=== PATIENT | male | born 1980 | race Caucasian/White ===

== ENCOUNTER 2017-07-24 21:54 | Emergency (ER) | payer MEDICAID, SELFPAY ==
[2017-07-24 21:57] VITALS: BP 133/81; PULSE 103; RESP 18; TEMP 36.9; O2SAT 94; BMI 38.3
--- NOTE | 2017-07-24 22:11 | EKG12_ITS ---
Test Reason : SYNCOPE Blood Pressure : / mmHG Vent. Rate : 090 BPM Atrial Rate : 090 BPM P-R Int : 168 ms QRS Dur : 082 ms QT Int : 338 ms P-R-T Axes : 030 006 016 degrees QTc Int : 413 ms Normal sinus rhythm Nonspecific ST and T wave abnormality Abnormal ECG Confirmed by MARIE BURKS, NICOLE ([id number]), editorial project manager SHAHEED FORD ([id number] on 07/26/2017 1:42:53 PM Referred By: CANDIDA Confirmed By:NICOLE SALAZAR MD
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
--- NOTE | 2017-07-24 22:14 | ED.RN ---
NO OLD EKG'S IN MUSE.
[2017-07-24] MEDS: 0.9% Normal Saline 1,000 ML 1000 ML IV (22:15)
--- NOTE | 2017-07-24 22:16 | ED.DCSUM_ITS ---
- ER Visit Summary Date of Service: 07/24/17 Chief Complaint: [] Syncope History of Present Illness: The patient is a 37 M [] reports episode of loss of consciousness after vigorously coughing. Patient reports he thought he had a seizure however in further eliciting the history it sounds like he had a syncopal episode. He reports coughing and blacking out for about 10 seconds and then being fully aware of his surroundings after he awoke. This does not sound like a postictal period. He does not have a previous history of seizures. Has a past medical history of type 2 diabetes. No other complaints at this time. Patient denies chest pain or shortness of breath either prior or post the episode. Physical Examination: [] Afebrile, vital signs stable. Morbidly obese 37-year-old male in no acute distress. Cardiovascular exam is regular rate and rhythm. Lungs are clear to auscultation. Abdomen is soft and nontender. Test Results: [] EKG: Sinus rhythm, rate of 90 without ischemic changes. No ectopy. Normal intervals. CBC normal. BMP normal with exertional a BUN mildly elevated at 24. Chest x- ray 1 view: Negative. Emergency Department Course and Treatment: [] Patient given IV fluids. His history sounds consistent with a vasovagal episode secondary to a coughing fit. He felt improved after fluids and serial examination. He was encouraged to follow-up with his primary care physician. Treatment Plan: [] Follow-up with PCP. Disposition: [] Discharge, stable. Impression: [] Syncope Dehydration This note was generated with [employer] dictation software. It may contain incorrect words, spelling, and punctuation that were not noted in review of the chart prior to signing ED Disposition - Plan for ED Patient: Chief Complaint: Seizure Referrals: Harmeet Calderon MD [Primary Care Provider] -
[2017-07-24 22:18] LABS: Absolute Lymphocyte Count 2.24 X10^3/ul (0.83-4.51); Absolute Neutrophil Count 4.1 X10^3/uL (2.0-7.7); Basophil# 0.04 X10^3/uL; Basophil% 0.6 % (0-1); Eosinophil# 0.06 X10^3/uL; Eosinophils% 0.9 % (0-5); Hemoglobin 14.5 g/dl (13.0-16.5); Lymphocyte # 2.24 X10^3/ul (4.0); Lymphocyte % 32.7 % (19-41); Mean Corp Hgb Conc 34.5 g/gl (32-36); Mean Corpuscular Hgb 29.7 pg (27.0-32.0); Mean Corpuscular Volume 85.9 fL (80-94); Mean Platelet Vol. 11.8 fl (6.2-12.0); Monocyte# 0.38 X10^3/uL; Monocyte% 5.5 % (0-10); Neutrophil # 4.08 X10^3/uL (2.7-7.7); Neutrophil % 59.4 % (47-70); Platelet Count 229 K/mm3 (150-450); RBC Distribution Width CV 13.2 % (11.6-14.6); RBC Distribution Width SD 41.1 fl (35.1-43.9); Red Blood Count 4.89 M/mm3 (4.6-6.2); White Blood Count 6.9 K/mm3 (4.4-11.0)
[2017-07-24 22:21] LABS: POSITIVE COUNT NO; POSITIVE DIFFERENTIAL NO; POSITIVE MORPHOLOGY NO
[2017-07-24 22:43] LABS: Anion Gap 8 (5-15); BUN 24 mg/dL (7-18); BUN/Creat Ratio 27.2 RATIO (10-20); Calcium,Total 8.4 mg/dL (8.5-10.1); Chloride 105 mmol/L (98-107); Creatinine, Serum 0.88 mg/dL (0.70-1.30); EST Glomerular Filtration Rate 104 mL/min (>60); Est Glom Filt Rate - Afr Amer 126 mL/min (>60); Estimated Creatinine Clearance 127.37 ml/min; Glucose 172 mg/dL (74-106); Potassium 3.8 mmol/L (3.5-5.1); Sodium Level 140 mmol/L (136-145)
--- NOTE | 2017-07-24 23:23 | ED.DEP ---
ED Disposition - Plan for ED Patient: Disposition: Home or Assisted Living Chief Complaint: Seizure Instructions: ED Syncope Vasovagal Referrals: Harmeet Calderon MD [Primary Care Provider] -
[2017-07-24 23:26] VITALS: BP 134/88; PULSE 100; RESP 16; O2SAT 96
== END 2017-07-24 23:31 | disposition home or self-care (01) ==
PROVIDERS: Emergency Provider Emergency Medicine; Family Provider Internal Medicine; PCP Internal Medicine
DX: E86.0 Dehydration (principal); R55 Syncope and collapse; E11.9 Type 2 diabetes mellitus without complications; Z79.84 Long term (current) use of oral hypoglycemic drugs; E78.00 Pure hypercholesterolemia, unspecified; E66.01 Morbid (severe) obesity due to excess calories; Z68.38 Body mass index [BMI] 38.0-38.9, adult; Z79.899 Other long term (current) drug therapy
CPT/HCPCS: 71045; 80048; 85025; 93005; 99285; A4216

== ENCOUNTER → 2017-11-24 09:25 | Outpatient (CLI) | payer MEDICAID, SELFPAY ==
--- NOTE | 2017-11-24 09:35 | RAD_ITS ---
STUDY: AIR-CONTRAST UPPER GI SERIES AND SMALL BOWEL FOLLOW-THROUGH EXAMINATION. REASON FOR EXAM: Male, 37 years old. Intractable vomiting and nausea. FLUOROSCOPY TIME (if supplied): (1:02) minutes/seconds TECHNIQUE: The patient ingested barium. Multiple images of the esophagus, stomach and duodenum were obtained. Following this, a small bowel follow-through examination was performed. COMPARISON: None. FINDINGS: The esophagus unremarkable. There is no evidence of obstruction. No mass lesion is seen. There is no evidence of gastroesophageal reflux. The stomach and duodenum are unremarkable. There is no evidence of ulceration. A small bowel follow-through examination was performed. The small bowel transit is normal. There is no evidence of intrinsic or extrinsic small bowel disease. The terminal ileum is unremarkable. RAD/Upper GI/w Small Bowel IMPRESSION: Unremarkable examination. Electronically Signed: Louie Valladares MD at 14:57 EDT Tel [phone], Service support ,
== END ==
PROVIDERS: Family Provider Internal Medicine; PCP Internal Medicine; Visit Provider Nurse Practitioner Adult Health
DX: R11.2 Nausea with vomiting, unspecified (principal); R19.4 Change in bowel habit; R19.7 Diarrhea, unspecified
CPT/HCPCS: 74249

== ENCOUNTER 2018-08-31 17:10 | Observation (INO) | payer MEDICAID, SELFPAY ==
[2018-08-31] VITALS (8 sets, daily range): BP systolic 128–161; BP diastolic 83–92; PULSE 87–103; RESP 15–21; TEMP 36.2–36.7; O2SAT 94–694; BMI 39.2; BMI 38.0
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
[2018-08-31 17:54] LABS: Absolute Lymphocyte Count 1.39 X10^3/ul (0.83-4.51); Absolute Neutrophil Count 4.2 X10^3/uL (2.0-7.7); Basophil# 0.04 X10^3/uL; Basophil% 0.7 % (0-1); Eosinophil# 0.06 X10^3/uL; Hematocrit 39.9 % (40-54); Hemoglobin 13.8 g/dl (13.0-16.5); Lymphocyte # 1.39 X10^3/ul (4.0); Lymphocyte % 22.8 % (19-41); Mean Corp Hgb Conc 34.6 g/gl (32-36); Mean Corpuscular Hgb 29.2 pg (27.0-32.0); Mean Corpuscular Volume 84.4 fL (80-94); Mean Platelet Vol. 11.3 fl (6.2-12.0); Monocyte# 0.32 X10^3/uL; Monocyte% 5.2 % (0-10); Neutrophil # 4.18 X10^3/uL (2.7-7.7); Neutrophil % 68.5 % (47-70); Platelet Count 207 K/mm3 (150-450); RBC Distribution Width CV 13.2 % (11.6-14.6); RBC Distribution Width SD 39.9 fl (35.1-43.9); Red Blood Count 4.73 M/mm3 (4.6-6.2); White Blood Count 6.1 K/mm3 (4.4-11.0)
[2018-08-31 17:57] LABS: POSITIVE COUNT NO; POSITIVE DIFFERENTIAL NO; POSITIVE MORPHOLOGY NO
[2018-08-31 18:13] LABS: Anion Gap 5 (5-15); BUN 22 mg/dL (7-18); BUN/Creat Ratio 21.8 RATIO (10-20); Calcium,Total 8.6 mg/dL (8.5-10.1); Chloride 103 mmol/L (98-107); Creatinine, Serum 1.01 mg/dL (0.70-1.30); EST Glomerular Filtration Rate 88 mL/min (>60); Est Glom Filt Rate - Afr Amer 107 mL/min (>60); Estimated Creatinine Clearance 109.91 ml/min; Glucose 208 mg/dL (74-106); Potassium 3.4 mmol/L (3.5-5.1); Sodium Level 137 mmol/L (136-145)
[2018-08-31 19:19] LABS: Amphetamine Urine VISTA NEGATIVE (<1000 ng/mL); Barbiturate Urine VISTA NEGATIVE (< 200 ng/mL); Benzodiazepine Urine VISTA NEGATIVE (< 200 ng/mL); Cocaine Urine VISTA NEGATIVE (< 300 ng/mL); Ecstacy Urine VISTA NEGATIVE (< 500 ng/mL); Methadone Urine VISTA NEGATIVE (< 300 ng/mL); PCP Urine VISTA NEGATIVE (< 25 ng/mL); THC Urine VISTA NEGATIVE (< 50 ng/mL); Vista UDS pH Range 5
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
[2018-08-31 21:55] LABS: Bedside Glucose 145 mg/dL (70-110)
[2018-08-31 21:57] LABS: Magnesium 1.9 mg/dL (1.6-2.6)
[2018-08-31] MEDS: 0.9% Normal Saline 1,000 ML 125 ML IV (22:30)
[2018-08-31] MEDS: Ipratropium Bromide 0.06% NASAL SPRAY 2 SPRAY NASAL (23:15)
[2018-08-31] MEDS: Loratadine 10 MG Tablet PO (23:16)
[2018-08-31] MEDS: Atorvastatin Calcium 10 MG Tablet PO (23:17)
[2018-09-01] VITALS (7 sets, daily range): BP systolic 142–147; BP diastolic 81–92; PULSE 77–99; RESP 16–17; TEMP 36.8–36.9; O2SAT 96–98
[2018-09-01 05:04] LABS: Absolute Lymphocyte Count 1.61 X10^3/ul (0.83-4.51); Absolute Neutrophil Count 4.1 X10^3/uL (2.0-7.7); Basophil# 0.03 X10^3/uL; Basophil% 0.5 % (0-1); Eosinophil# 0.06 X10^3/uL; Hematocrit 40.2 % (40-54); Hemoglobin 13.7 g/dl (13.0-16.5); Lymphocyte # 1.61 X10^3/ul (4.0); Lymphocyte % 25.8 % (19-41); Mean Corp Hgb Conc 34.1 g/gl (32-36); Mean Corpuscular Hgb 29.8 pg (27.0-32.0); Mean Corpuscular Volume 87.4 fL (80-94); Mean Platelet Vol. 11.1 fl (6.2-12.0); Monocyte# 0.36 X10^3/uL; Monocyte% 5.8 % (0-10); Neutrophil # 4.13 X10^3/uL (2.7-7.7); Neutrophil % 66.1 % (47-70); Platelet Count 199 K/mm3 (150-450); RBC Distribution Width CV 13.3 % (11.6-14.6); RBC Distribution Width SD 42.6 fl (35.1-43.9); White Blood Count 6.2 K/mm3 (4.4-11.0)
[2018-09-01 05:16] LABS: POSITIVE COUNT NO; POSITIVE DIFFERENTIAL NO; POSITIVE MORPHOLOGY NO
[2018-09-01 05:51] LABS: ALB/GLOB Ratio 1.2 RATIO (0.9-2.4); AST(SGOT) 34 U/L (15-37); Alanine Aminotransfer ALT/SGPT 53 U/L (16-61); Albumin, Serum 3.6 g/dL (3.2-5.0); Alkaline Phosphatase 44 U/L (45-117); Anion Gap 7 (5-15); BUN 23 mg/dL (7-18); BUN/Creat Ratio 25.6 RATIO (10-20); Calcium,Total 8.2 mg/dL (8.5-10.1); Chloride 106 mmol/L (98-107); Cholesterol 148 mg/dL (200); EST Glomerular Filtration Rate 101 mL/min (>60); Est Glom Filt Rate - Afr Amer 122 mL/min (>60); Estimated Creatinine Clearance 123.35 ml/min; Glucose 173 mg/dL (74-106); High Density Lipoprotein 19 mg/dL; Potassium 3.9 mmol/L (3.5-5.1); Protein, Total 6.6 g/dL (6.4-8.2); Sodium Level 141 mmol/L (136-145); Triglycerides 609 mg/dL
[2018-09-01] MEDS: Ipratropium Bromide 0.06% NASAL SPRAY 2 SPRAY NASAL (06:22)
[2018-09-01] MEDS: 0.9% Normal Saline 1,000 ML 125 ML IV (06:22)
[2018-09-01 07:15] LABS: Bedside Glucose 196 mg/dL (70-110)
[2018-09-01] MEDS: Insulin Lispro 100 UNIT/ML INSULN.PEN SC ×2 (07:40→11:19)
[2018-09-01] MEDS: Loratadine 10 MG Tablet PO (11:17)
[2018-09-01] MEDS: Venlafaxine XR 150 MG Capsule PO (11:17)
[2018-09-01] MEDS: ARIPiprazole 5 MG Tablet PO (11:17)
[2018-09-01] MEDS: Aspirin 81 MG TAB.CHEW PO (11:17)
[2018-09-01] MEDS: Lisinopril 5 MG Tablet PO (11:18)
[2018-09-01 11:21] LABS: Bedside Glucose 196 mg/dL (70-110)
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
== END 2018-09-01 11:59 | disposition home or self-care (01) ==
LOC: ED 17:44 → PCU 21:18
PROVIDERS: Admitting Provider Family Medicine; Emergency Provider Emergency Medicine; Family Provider Internal Medicine; PCP Internal Medicine; Visit Provider Internal Medicine
DX: R55 Syncope and collapse (principal); E87.6 Hypokalemia; E78.5 Hyperlipidemia, unspecified; I10 Essential (primary) hypertension; E11.9 Type 2 diabetes mellitus without complications; E66.9 Obesity, unspecified; Z68.38 Body mass index [BMI] 38.0-38.9, adult; Z71.3 Dietary counseling and surveillance; F84.5 Asperger's syndrome; F41.9 Anxiety disorder, unspecified; F32.9 Major depressive disorder, single episode, unspecified; Z79.899 Other long term (current) drug therapy; Z79.84 Long term (current) use of oral hypoglycemic drugs
CPT/HCPCS: 36415; 70450; 71275; 72125; 80048; 80053; 80061; 80307; 80320; 82962; 83735; 84484; 85025; 93005; 93306; 96360; 96361; 97802; 99218; 99285; J7030; J7040; Q9957; Q9967; A4216; C8929; G0378; G0480

== ENCOUNTER 2020-11-10 20:23 | Emergency (ER) | payer SELFPAY ==
[2018-08-31 21:38] VITALS: BMI 38.0
[2020-11-10 20:24] VITALS: BP 144/88; PULSE 77; RESP 18; TEMP 36.5; O2SAT 97; BMI 34.8
--- NOTE | 2020-11-10 21:10 | EX.ED.UPPERE ---
HPI History of Present Illness Chief Complaint: Laceration Informant: patient Narrative Narrative: Patient was slicing food on a mandolin slicer. He accidentally got injury to his right dominant hand and thumb index finger and long finger. Tetanus is up-to-date as of 2 years ago. No numbness tingling weakness or loss of function. Bleeding is controlled. No anticoagulants other than meloxicam. Dressings made it better. Nothing makes it worse. Denies any other injury. [facility] Medical History (Updated 11/10/20 @ 23:[address] Uriel Monreal MD) Anxiety Depression Diabetes Home Medications glipizide 5 mg PO DAILY 08/31/18 [History Last Taken 08/31/18] metformin 500 mg PO BIDCM 08/31/18 [History Last Taken 08/31/18] venlafaxine 225 mg PO DAILY 08/31/18 [History Last Taken 08/31/18] bupropion HCl 300 mg PO DAILY 11/10/20 [History Last Taken Unknown] fenofibrate nanocrystallized 145 mg PO DAILY 11/10/20 [History Last Taken Unknown] meloxicam 15 mg PO DAILY 11/10/20 [History Last Taken Unknown] pioglitazone 15 mg PO DAILY 11/10/20 [History Last Taken Unknown] Allergy/AdvReac Type Severity Reaction Status Date / Time amoxicillin Allergy Hives Verified 08/31/18 17:17 Social History Smoking Status: Never smoker ROS ROS ED Constitutional Constitutional ED: Denies chills or sweats Gastrointestinal Gastrointestinal: Denies nausea or vomiting Integumentary Reports other Details: Lacerations on right thumb index and middle finger as above. ; Denies rash Neurologic Neurologic: Denies paresthesias or weakness Hematologic/Lymphatic Hematologic/Lymphatic: Denies easy bleeding or easy bruising EXAM Physical Exam Const Vital Signs: 11/10/20 20:24 Temperature 97.7 F L Temperature Source Temporal Pulse Rate 77 Respiratory Rate 18 Blood Pressure 144/88 H Blood Pressure Mean 106 Pulse Ox 97 Oxygen Delivery Method Room Air Positive well nourished and well developed General Appearance ED: well developed and NAD; Negative for cyanotic or diaphoretic HEENT normocephalic Neck full ROM and supple Resp normal respiratory effort GI non-tender Palpation: soft Extremity full ROM Extremity Narrative: Patient has excellent range of motion including flexors and extensors of right hand including all fingers. He has an avulsion of approximately 1cm? area of tissue from the dorsal middle finger overlying the distal interphalangeal joint. No exposed tendon. He has an avulsion of a small amount of tissue off the medial dorsal portion of the right index finger near the nail. Patient also has a flap type laceration to the volar surface of the right thumb more laterally. No active bleeding. Distal sensation is intact. This area will be cleansed and scrubbed more to define the limits of this laceration. Neuro no focal motor deficits and no sensory deficits noted Sensorium / Orientation: alert Psych mental status grossly normal Skin Skin Narrative: as above Trauma: laceration MDM MDM MDM Narrative Medical decision making narrative: We rechecked his hand after cleansing. He has a flap laceration of the volar lateral aspect of his right thumb. The circumference of this total is about 3 cm. It is thin on the edges. However, I think it would benefit from a few sutures being placed to hold this flap in place better. I will try to minimize the number to avoid a large number of additional holes/trauma to that flap. I discussed risk benefits and options with the patient. I have done a digital block on her thumb. I used a total of 2 cc of 1% lidocaine without epinephrine. We are letting that rest. We will come back and touchup areas that need anesthesia and complete the procedure. Patient had overall good but not complete anesthesia of the thumb. I did use about half cc of lidocaine without epinephrine distally to provide greater anesthesia. The area was scrubbed and cleaned. It was irrigated under the flap. The flap was sutured back with 3 interrupted 4-0 Ethilon sutures. There is some oozing from the wound but no active bleeding. I did not put many stitches in because this flap is already a little bit dusky and I would like to avoid further trauma. We discussed reasons to return. He should have the sutures out in about 10 days. We discussed care of the wound. Discharge Plan Triage Chief Complaint: Laceration ED Provider: Uriel Monreal Dx/Rx/DC Orders Clinical Impression: Laceration of right hand, Suture of skin wound Instructions: ED Laceration, Hand: All Closures Prescriptions: No Action metformin 500 MG tablet 500 mg PO BIDCM RF: 0 venlafaxine 150 MG capsule 225 mg PO DAILY RF: 0 glipizide 5 MG tablet 5 mg PO DAILY RF: 0 meloxicam 15 mg tablet 15 mg PO DAILY RF: 0 pioglitazone 15 mg tablet 15 mg PO DAILY RF: 0 bupropion HCl 300 mg tablet extended release 24 hr 300 mg PO DAILY RF: 0 fenofibrate nanocrystallized 145 mg tablet 145 mg PO DAILY RF: 0 Primary Care Provider: Harmeet Calderon Referrals: Harmeet Calderon MD [Primary Care Provider] - 10 Day for suture removal Disposition Disposition: Home, Self Care
[2020-11-11] MEDS: Lidocaine 1% (20 ml mdv) 20 ML Vial INFILT (00:22)
[2020-11-11] MEDS: BACITRACIN 15 GM Tube 1 APPLIC TOPICAL (00:22)
== END 2020-11-11 00:24 | disposition home or self-care (01) ==
PROVIDERS: Emergency Provider Emergency Medicine; PCP Internal Medicine
DX: S61.411A Laceration without foreign body of right hand, initial encounter (principal); E11.9 Type 2 diabetes mellitus without complications; F32.9 Major depressive disorder, single episode, unspecified; Z79.84 Long term (current) use of oral hypoglycemic drugs; Z79.899 Other long term (current) drug therapy; W27.4XXA Contact with kitchen utensil, initial encounter
CPT/HCPCS: 12002; 99284

== ENCOUNTER 2022-01-08 12:55 | Inpatient (IN) | payer MEDICAID, SELFPAY ==
[2022-01-08 12:56] VITALS: BP 141/102; PULSE 105; RESP 18; TEMP 36; O2SAT 98; BMI 36.6
--- NOTE | 2022-01-08 13:07 | EX.ED.DYSGE1 ---
HPI History of Present Illness Chief Complaint: Flank Pain Informant: patient Onset/Context/Timing Onset: Weeks (3) Context: - (Cannot remember onset) Timing: Continuous and Waxes and wanes Quality: Ache Location: Right low back Current Severity: Mild Maximum Severity: Moderate Worsened by: Nothing in particular, not worse with specific movements Relieved by: Nothing in particular Associated Symptoms Associated Symptoms: Hematuria off and on for the past 2 days Narrative Narrative: Patient has had pain in his right low back, no abdominal or testicular/scrotal pain, it has been there for about 3 weeks. He states he saw [facility] urgent care and they did an outpatient ultrasound which he states was unremarkable. He started urinating blood couple days ago, it has been intermittent. He denies any urinary retention. He takes no anticoagulants or antiplatelet medications. Denies any fevers, chills, nausea, vomiting. [facility] Medical History (Updated 01/08/22 @ 17:[address] Martin Wang MD) Anxiety Asperger's disorder Depression Diabetes mellitus, type II HLD (hyperlipidemia) HTN (hypertension) Home Medications venlafaxine 150 mg capsule,extended release 24 hr 225 mg PO DAILY depression 08/31/18 [History Last Taken 08/31/18] bupropion HCl 300 mg 24 hr tablet, extended release 300 mg PO DAILY 11/10/20 [History Last Taken Unknown] fenofibrate nanocrystallized 145 mg tablet 145 mg PO DAILY 11/10/20 [History Last Taken Unknown] pioglitazone 15 mg tablet 15 mg PO DAILY dm 11/10/20 [History Last Taken Unknown] acetaminophen 500 mg tablet 1,000 mg PO Q6H PRN Pain 01/08/22 [History Last Taken 01/08/22] atorvastatin 40 mg tablet mg 01/08/22 [History Last Taken Unknown] brexpiprazole 3 mg tablet (Rexulti) 3 mg PO DAILY 01/08/22 [History Last Taken 01/08/22] dulaglutide 1.5 mg/0.5 mL subcutaneous pen injector (Trulicity) 1.5 mg subcut TU 01/08/22 [History Last Taken 01/06/22] lisinopril 5 mg tablet 5 mg PO DAILY 01/08/22 [History Last Taken 01/08/22] metformin 500 mg tablet,extended release 24 hr 2,000 mg PO DAILY 01/08/22 [History Last Taken 01/08/22] Allergy/AdvReac Type Severity Reaction Status Date / Time amoxicillin Allergy Hives Verified 01/08/22 12:56 Social History Smoking Status: Never smoker ROS ROS ED Constitutional Constitutional ED: Denies chills or fever(s) Eyes Eyes: Denies change in vision or diplopia ENT ENT ED: Denies rhinorrhea or sore throat Cardiovascular Cardiovascular: Denies chest pain or palpitations Respiratory/Chest Respiratory/Chest: Denies cough or dyspnea Gastrointestinal Gastrointestinal: Denies abdominal pain, diarrhea, nausea or vomiting Genitourinary Genitourinary ED: Reports hematuria; Denies dysuria or urinary frequency Musculoskeletal Musculoskeletal: Reports back pain; Denies neck pain Integumentary Denies abscess or rash Neurologic Neurologic: Denies headache(s), paresthesias or weakness Psychiatric Psychiatric: Denies anxiety or suicidal thoughts EXAM Physical Exam Const Vital Signs: 01/08/22 12:56 01/08/22 13:16 01/08/22 15:44 Temperature 96.8 F L Temperature Source Temporal Pulse Rate 105 H 81 Respiratory Rate 18 18 Respiratory Pattern Normal Blood Pressure 141/102 H 149/100 H Blood Pressure Mean 115 116 Pulse Ox 98 97 Oxygen Delivery Method Room Air Room Air 01/08/22 17:28 Temperature Temperature Source Pulse Rate 83 Respiratory Rate 18 Respiratory Pattern Blood Pressure 148/98 H Blood Pressure Mean 114 Pulse Ox 97 Oxygen Delivery Method Room Air Positive well nourished and well developed General Appearance ED: well developed and NAD HEENT Reports moist mucous membranes normocephalic and atraumatic Eyes PERRL and EOMs intact bilaterally Neck full ROM and supple Resp normal respiratory effort and clear to auscultation bilaterally Cardio regular rate, regular rhythm and no murmurs GI non-tender and non-distended Auscultation: normoactive bowel sounds Palpation: soft Back/Spine no CVA tenderness General Back: other FROM Extremity normal to inspection General Extremety ED: Negative for edema, pulses abnormal or tenderness General Extremity: Negative for edema or pulses abnormal Neuro oriented x3, CN's II-XII intact bilaterally and no sensory deficits noted Sensorium / Orientation: awake and alert Motor Exam: strength 5/5 throughout Skin no rashes or lesions noted and no wounds MDM MDM MDM Narrative Medical decision making narrative: Patient's labs show acute renal failure with a creatinine almost 5, and a 10:1 ratio of [id number]. Imaging of the abdomen/pelvis with CT with no contrast shows concern for possible dilatation of left renal and gonadal veins, more proximally in the gonadal vein than distally which is suspicious for possible thrombus. No other obvious renal problem except for some mild perinephric stranding bilaterally. This is obviously limited without IV contrast, however given his creatinine I do not think that is in his best interest so after discussing with urology Dr. Shaver, we obtained an ultrasound of his kidneys here. It is normal, but did not evaluate the veins, and the IVC was observed by bowel gas and not visible. Clinically the patient is doing fine. I discussed with Dr. Parr with vascular, he agrees with admission here, advises making the patient n.p.o. after midnight and obtaining a renal duplex Doppler ultrasound in the morning, and he will see the patient in consultation. Lab Data Attestation: I reviewed the patient's lab results. Labs: Laboratory Results - last 24 hr 01/08/22 01/08/22 01/08/22 13:10 13:10 13:10 WBC 6.5 RBC 3.77 L Hgb 10.5 L Hct 33.0 L MCV 87.5 MCH 27.9 MCHC 31.8 L RDW Std Deviation 43.3 RDW Coeff of Jennie 13.5 Plt Count 318 MPV 11.7 Immature Gran % (Auto) 0.500 Neut % (Auto) 81.0 H Lymph % (Auto) 10.0 L [place] % (Auto) 7.1 Eos % (Auto) 0.5 Baso % (Auto) 0.9 Absolute Neuts (auto) 5.3 Absolute Lymphs (auto) 0.65 L Nucleated RBC % 0 Sodium 138 Potassium 3.8 Chloride 104 Carbon Dioxide 25.0 Anion Gap 9 BUN 42 H Creatinine 4.96 H Estim Creat Clear Calc 21.73 Est GFR (MDRD) Af Amer 17 L Est GFR (MDRD) Non-Af 14 L BUN/Creatinine Ratio 8.5 L Glucose 136 H Calcium 9.4 Urine Color Liz Urine Clarity Cloudy Urine pH 6.0 Ur Specific [place] 1.015 Urine Protein 100 H Urine Glucose (UA) Normal Urine Ketones Negative Urine Occult Blood 250 H Urine Nitrite Negative Urine Bilirubin Negative Urine Urobilinogen Normal Ur Leukocyte Esterase 25 H Urine RBC 25-50 SEEN Urine WBC 0-5 SEEN Ur Squamous Epith Cells 0 SEEN Urine Bacteria 1+ Urine Mucus 0 SEEN Radiography Diagnostic Testing: Clinical Impression(s) from Imaging Studies Abdomen/Pelvis CT 01/08/22 13:25 IMPRESSION: Bilateral perinephric stranding worse on the left side with enlargement of the left kidney. Findings suggestive of a distended left renal vein and proximal portion of the left gonadal vein suggestive of possible left renal vein thrombosis. A repeat examination following IV contrast is recommended if the patient''s renal profile is acceptable. Bladder wall thickening. Electronically Signed: Louie Valladares MD at 14:00 EDT , Renal Ultrasound 01/08/22 14:56 IMPRESSION: There are no acute findings. Electronically Signed: Chucky Ahn MD at 16:59 EDT , Discharge Plan Dx/Rx/DC Orders Clinical Impression: Acute renal failure, Hematuria Disposition Disposition: [facility]
[2022-01-08 13:17] LABS: Mucous, Urine 0 SEEN /hpf (<or=2+); Squamous Epithelial Cells - UA 0 SEEN /hpf (0-5)
[2022-01-08 13:24] LABS: Absolute Lymphocyte Count 0.65 X10^3/uL (0.83-4.51); Absolute Neutrophil Count 5.3 X10^3/uL (2.0-7.7); Basophil# 0.06 X10^3/uL; Basophil% 0.9 % (0-1); Eosinophil# 0.03 X10^3/uL; Eosinophils% 0.5 % (0-5); Hemoglobin 10.5 g/dL (13.0-16.5); Lymphocyte # 0.65 X10^3/ul (0.83-4.51); Mean Corp Hgb Conc 31.8 g/dL (32-36); Mean Corpuscular Hgb 27.9 pg (27.0-32.0); Mean Corpuscular Volume 87.5 fL (80-94); Mean Platelet Vol. 11.7 fl (6.2-12.0); Monocyte# 0.46 X10^3/uL; Monocyte% 7.1 % (0-10); NRBC Flagged by Analyzer 0 % (0-5); Neutrophil # 5.27 X10^3/uL (2.7-7.7); Platelet Count 318 K/mm3 (150-450); RBC Distribution Width CV 13.5 % (11.6-14.6); RBC Distribution Width SD 43.3 fl (35.1-43.9); Red Blood Count 3.77 M/mm3 (4.6-6.2); White Blood Count 6.5 K/mm3 (4.4-11.0)
--- NOTE | 2022-01-08 13:25 | CT_ITS ---
STUDY: CT ABDOMEN AND PELVIS WITHOUT CONTRAST REASON FOR EXAM: Male, 41 years old. R flank pain, hematuria RADIATION DOSAGE (If Supplied By Facility): CTDIvol = ( 20.43 ) mGy, DLP = ( 1122.75 ) mGycm TECHNIQUE: Transaxial images were obtained from the dome of the diaphragm to the symphysis pubis without oral contrast, and without intravenous contrast. Sagittal and coronal images were reconstructed. Individualized dose optimization techniques were used for this CT. COMPARISON: None. FINDINGS: The visualized lung bases are unremarkable. The visualized portions of the heart are within normal limits. Normal liver. Normal gallbladder and extrahepatic biliary system. Normal spleen. Normal pancreas. Normal bilateral adrenal glands. Mild degree of right perinephric stranding. There is engorgement of the left kidney with the left perinephric stranding. There is enlargement of the left renal vein. There is dilatation of the distal portion of the left gonadal vein. Left renal venous thrombosis should be ruled out. There is a small hiatal hernia. Normal small intestine. Normal colon. The appendix is visualized and appears normal. Normal abdominal aorta. Normal inferior vena cava. There is borderline retroperitoneal lymphadenopathy with enlarged nodes no greater than 10mm in the short axis diameter. Mild degree of diffuse bilateral wall thickening. There is a small umbilical hernia containing fat. There are mild degenerative changes of the visualized lumbar spine. CT/Abdomen/Pelvis without Cont IMPRESSION: Bilateral perinephric stranding worse on the left side with enlargement of the left kidney. Findings suggestive of a distended left renal vein and proximal portion of the left gonadal vein suggestive of possible left renal vein thrombosis. A repeat examination following IV contrast is recommended if the patient''s renal profile is acceptable. Bladder wall thickening. Electronically Signed: Louie Valladares MD at 14:00 EDT ,
[2022-01-08 13:33] LABS: Anion Gap 9 (5-15); BUN 42 mg/dL (7-18); BUN/Creat Ratio 8.5 RATIO (10-20); Calcium,Total 9.4 mg/dL (8.5-10.1); Chloride 104 mmol/L (98-107); Creatinine, Serum 4.96 mg/dL (0.70-1.30); EST Glomerular Filtration Rate 14 mL/min (>60); Est Glom Filt Rate - Afr Amer 17 mL/min (>60); Estimated Creatinine Clearance 21.73 ml/min; Glucose 136 mg/dL (74-106); Potassium 3.8 mmol/L (3.5-5.1); Sodium Level 138 mmol/L (136-145)
[2022-01-08 13:36] LABS: Color, Urine Amber (Yellow); Glucose, Dipstick Normal (Normal); Ketone-Dipstick Negative (Negative); Leukocyte Esterase-Dipstick 25 /ul (Negative); Nitrite-Dipstick Negative (Negative); Occult Blood-Urine 250 /ul (Negative); Protein-Dipstick 100 mg/dl (Negative); Specific Gravity, Urine 1.015 (1.002-1.030); Urine Bilirubin Dipstick Negative (Negative); Urine Clarity Cloudy (Clear); Urine Urobilinogen Normal (Normal)
[2022-01-08 13:49] LABS: Bacteria 1+ /hpf (None Seen); Red Blood Cells-Urine 25-50 SEEN /hpf (0-5); White Blood Cells 0-5 SEEN /hpf (0-5)
--- NOTE | 2022-01-08 14:56 | US_ITS ---
STUDY: RENAL ULTRASOUND - COMPLETE REASON FOR EXAM: Male, 41 years old. acute renal failure TECHNIQUE: Ultrasound evaluation of the kidneys was performed with real-time and static pearl-scale imaging. COMPARISON: None. FINDINGS: RIGHT KIDNEY: Normal location of the right kidney, which is normal in size. The right kidney measures 15.2 cm. There is a normal cortex of the right kidney. The renal cortex measures 2.1 cm. There is no right renal mass or cyst. There are no right renal calculi. There is no right hydronephrosis. DISTAL RIGHT URETER: There is non-visualization of the distal right ureter. There is no demonstrated right ureterovesical junction calculus. There is a visualized right ureteral jet. LEFT KIDNEY: with moderate renal hypertrophy. The left kidney measures 17.8 cm. There is a normal cortex of the left kidney. The renal cortex measures 3.4 cm. There is no left renal mass or cyst. There are no left renal calculi. There is no left hydronephrosis. DISTAL LEFT URETER: There is non-visualization of the distal left ureter. There is no demonstrated left ureterovesical junction calculus. There is a visualized left ureteral jet. AORTA: There is obscuration of the abdominal aorta by overlying bowel gas I.V.C.: The IVC is obscured. BLADDER: The distended urinary bladder has a volume of 170 ml. There is a normal wall thickness of the distended urinary bladder. There is no demonstrated mass within the urinary bladder. There are no demonstrated bladder calculi. US/Kidney and Bladder IMPRESSION: There are no acute findings. Electronically Signed: Chucky Ahn MD at 16:59 EDT ,
[2022-01-08 15:44] VITALS: BP 149/100; PULSE 81; RESP 18; O2SAT 97
[2022-01-08 17:28] VITALS: BP 148/98; PULSE 83; RESP 18; O2SAT 97
[2022-01-08 18:17] VITALS: BP 149/101; PULSE 87; RESP 18; TEMP 36.5; O2SAT 97
--- NOTE | 2022-01-08 18:23 | PCM.HP.STD ---
HPI - General General Date of Admission: 01/08/22 Date of Service: 01/08/22 Chief Complaint: Right flank pain, hematuria HPI Narrative KRISH MARQUIS, is a 41 M who presents to the emergency room at [facility] for evaluation of right pain that has been present for about 3 weeks, he was seen at [facility] urgent care on Wednesday and an ultrasound was performed but they could not find any pathology according to his mother-patient has a history of Asperger's disorder and some of his medical history was obtained from his mother. Patient noted a couple of days ago that he had blood in his urine intermittently, he denied any fevers, chills, or dysuria. Work-up in the emergency room included labs which showed an elevated creatinine at 4.96, BUN was elevated at 42, glucose was 136. Urinalysis showed 25-50 RBCs and 0-5 WBCs there was +1 bacteria noted. Patient's white blood cell count was normal, hemoglobin was 10.5. Patient underwent a CT of the abdomen pelvis which indicated bilateral perinephric stranding worse on the left side with enlargement of the left kidney, there was findings suggestive of distended left renal vein and proximal portion of the left gonadal vein suggestive of possible left renal vein thrombosis. Vascular surgery was consulted by the emergency room physician, a renal ultrasound was obtained which was unremarkable. Vascular surgery requested the patient undergo a renal artery duplex scan after admission to the hospital. Patient will be admitted to [place] [id number], he will be given IV fluids, he will be seen in consultation by vascular surgery and nephrology, blood sugars will be controlled with sliding scale insulin based on fingerstick blood sugars. Patient is on lisinopril for blood pressure at home, this will be changed to Norvasc during his hospitalization. [facility] Medical History Anxiety Asperger's disorder Depression Diabetes mellitus, type II HLD (hyperlipidemia) HTN (hypertension) Home Medications venlafaxine 150 mg capsule,extended release 24 hr 150 mg PO DAILY depression 08/31/18 [History Last Taken 01/08/22] bupropion HCl 300 mg 24 hr tablet, extended release 300 mg PO DAILY 11/10/20 [History Last Taken 01/08/22] fenofibrate nanocrystallized 145 mg tablet 145 mg PO DAILY 11/10/20 [History Last Taken 01/08/22] pioglitazone 15 mg tablet 15 mg PO DAILY dm 11/10/20 [History Last Taken 01/08/22] acetaminophen 500 mg tablet 1,000 mg PO Q6H PRN Pain 01/08/22 [History Last Taken 01/08/22] atorvastatin 40 mg tablet 40 mg PO DAILY 01/08/22 [History Last Taken 1 Week Ago ~01/01/22] brexpiprazole 3 mg tablet (Rexulti) 3 mg PO DAILY 01/08/22 [History Last Taken 01/08/22] dulaglutide 1.5 mg/0.5 mL subcutaneous pen injector (Trulicity) 1.5 mg subcut TU 01/08/22 [History Last Taken 01/06/22] lisinopril 5 mg tablet 5 mg PO DAILY 01/08/22 [History Last Taken 01/08/22] metformin 500 mg tablet,extended release 24 hr 2,000 mg PO DAILY 01/08/22 [History Last Taken 01/08/22] Allergy/AdvReac Type Severity Reaction Status Date / Time amoxicillin Allergy Hives Verified 01/08/22 12:56 atorvastatin AdvReac Unknown Vomiting Verified 01/08/22 18:01 Social History Smoking Status: Never smoker ROS Constitutional Constitutional: Denies anorexia, change in weight, chills, fatigue, fever(s), malaise, night sweats or weakness Eyes Eyes: Denies blurry vision, change in vision, discharge from eye(s) or eye pain ENT HEENT: Denies dysphagia Cardiovascular Cardiovascular: Denies chest pain, claudication, dyspnea on exertion, edema, lightheadedness or palpitations Respiratory/Chest Respiratory/Chest: Denies cough, excessive phlegm production, hemoptysis, productive cough, shortness of breath at rest or shortness of breath with exertion Gastrointestinal Gastrointestinal: Denies abdominal pain, constipation, diarrhea, hematemesis, hematochezia, melena, nausea or vomiting Genitourinary Genitourinary: Reports hematuria; Denies burning urination, difficulty urinating, dysuria, urinary frequency, urinary hesitancy, urinary incontinence or urinary urgency Musculoskeletal Musculoskeletal: Denies back pain, joint pain, joint stiffness, joint swelling, myalgias or neck pain Neurologic Neurologic: Denies abnormal gait, abnormal speech, dizziness, focal weakness, headache(s), loss of vision, numbness, other visual disturbances, paresthesias, syncope or tingling Psychiatric Psychiatric: Denies anxiety, cognitive impairment, depression, irritability, mood swings or suicidal ideation Endocrine Endocrinology: Denies change in body appearance, cold intolerance, excessive sweating, heat intolerance, polydipsia or polyuria Hematologic/Lymphatic Hematologic/Lymphatic: Denies none, anemia, easy bleeding, easy bruising or lymphadenopathy Allergic/Immunologic Allergic/Immunologic: Denies rhinitis, urticaria, eczemia or asthma Vital Signs Vital Signs Vital Signs: 01/08/22 12:56 01/08/22 13:16 01/08/22 15:44 Temperature 96.8 F L Temperature Source Temporal Pulse Rate 105 H 81 Respiratory Rate 18 18 Respiratory Pattern Normal Blood Pressure 141/102 H 149/100 H Blood Pressure Mean 115 116 Pulse Ox 98 97 Oxygen Delivery Method Room Air Room Air 01/08/22 17:28 01/08/22 18:17 Temperature 97.7 F L Temperature Source Oral Pulse Rate 83 87 Respiratory Rate 18 18 Respiratory Pattern Blood Pressure 148/98 H 149/101 H Blood Pressure Mean 114 117 Pulse Ox 97 97 Oxygen Delivery Method Room Air Room Air Weight Weight: 122.47 kg Body Mass Index (BMI) 36.6 Physical Exam Narrative Patient is alert and responds appropriately to simple questions, he has a flat affect, he does not appear agitated or depressed. Const alert, oriented x3, no apparent distress, healthy appearing and well nourished General Appearance: cooperative, well kempt and well developed Orientation / Consciousness: awake, oriented to person, oriented to place and oriented to time HEENT normocephalic, head/scalp atraumatic, hearing grossly normal bilaterally and moist oral mucous membranes Eyes PERRL, EOMs intact bilaterally and conjunctivae normal Neck supple, no JVD, thyroid normal and no carotid bruits General: trachea midline Resp normal respiratory effort, no retractions, no use of accessory muscles and clear to auscultation bilaterally Auscultation: Negative for rales, rhonchi or wheezes Cardio regular rate, regular rhythm, S1 normal heart sound, S2 normal heart sound, no murmurs, no rub and no gallops GI normal to inspection, nondistended, normoactive bowel sounds, soft to palpation, non-tender and non-distended Extremity no clubbing, cyanosis or edema Skin no rashes or lesions noted General Skin Exam: no breakdown Neuro oriented x3, CN's II-XII intact bilaterally, moves all extremities, no focal motor deficits and no sensory deficits noted Sensorium / Orientation: awake, alert, oriented to person, oriented to place and oriented to time Speech: speech normal Psych Psych Narrative: Patient has flat affect, he responds appropriately to simple questions. Results Lab / Micro Data Result Diagrams: 01/08/22 13:10 01/08/22 13:10 Labs: Laboratory Results - last 24 hr 01/08/22 13:10: WBC 6.5, RBC 3.77 L, Hgb 10.5 L, Hct 33.0 L, MCV 87.5, MCH 27.9, MCHC 31.8 L, RDW Std Deviation 43.3, RDW Coeff of [place] 13.5, Plt Count 318, MPV 11.7, Immature Gran % (Auto) 0.500, Neut % (Auto) 81.0 H, Lymph % (Auto) 10.0 L, [place] % (Auto) 7.1, Eos % (Auto) 0.5, Baso % (Auto) 0.9, Absolute Neuts (auto) 5.3, Absolute Lymphs (auto) 0.65 L, Nucleated RBC % 0 01/08/22 13:10: Sodium 138, Potassium 3.8, Chloride 104, Carbon Dioxide 25.0, Anion Gap 9, BUN 42 H, Creatinine 4.96 H, Estim Creat Clear Calc 21.73, Est GFR (MDRD) Af Amer 17 L, Est GFR (MDRD) Non-Af 14 L, BUN/Creatinine Ratio 8.5 L, Glucose 136 H, Calcium 9.4 01/08/22 13:10: Urine Color Liz, Urine Clarity Cloudy, Urine pH 6.0, Ur Specific [place] 1.015, Urine Protein 100 H, Urine Glucose (UA) Normal, Urine Ketones Negative, Urine Occult Blood 250 H, Urine Nitrite Negative, Urine Bilirubin Negative, Urine Urobilinogen Normal, Ur Leukocyte Esterase 25 H, Urine RBC 25-50 SEEN, Urine WBC 0-5 SEEN, Ur Squamous Epith Cells 0 SEEN, Urine Bacteria 1+, Urine Mucus 0 SEEN Radiology Impression Abdomen/Pelvis CT 01/08/22 13:25 IMPRESSION: Bilateral perinephric stranding worse on the left side with enlargement of the left kidney. Findings suggestive of a distended left renal vein and proximal portion of the left gonadal vein suggestive of possible left renal vein thrombosis. A repeat examination following IV contrast is recommended if the patient''s renal profile is acceptable. Bladder wall thickening. Electronically Signed: Louie Valladares MD at 14:00 EDT , Renal Ultrasound 01/08/22 14:56 IMPRESSION: There are no acute findings. Electronically Signed: Chucky Ahn MD at 16:59 EDT , Assessment & Plan Assessment/Plan (1) Hematuria: PLAN: Plan 1. Acute renal failure-patient will be admitted to [facility] 3, IV fluids will be administered, patient will be seen in consultation by nephrology and vascular surgery due to his abnormal CT of his abdomen. #[address] of the abdomen indicating a possible thrombus in the left renal and gonadal vein-patient will be seen by vascular surgery, renal duplex ultrasound will be ordered #3 essential hypertension-patient will be placed on Norvasc for blood pressure, MITALI inhibitor will be stopped #4 type 2 diabetes-patient's blood sugars will be monitored using fingerstick blood sugars and sliding scale insulin will be administered per fingerstick result #5 Asperger's syndrome-complicates care, recovery, management, and prognosis #6 hematuria-etiology unclear at this point, I do not believe the patient has a urinary tract infection, labs will be monitored Charges/Coding Visit Charges Inpatient E&M: 56128 Init Hosp L3
[2022-01-08 18:30] VITALS: BP 157/96; PULSE 88; RESP 16; TEMP 36.8; O2SAT 99
[2022-01-08 18:32] VITALS: BMI 34.9
--- NOTE | 2022-01-08 19:01 | RDU_ITS ---
Reason For Study: Abnormal CT scan of the kidney Right Renal Artery Left Renal Artery Right renal artery ostium Left renal artery ostium 107.3/28.3 112.5/26.7 RSV/EDV. PSV/EDV. Right renal artery proximal Left renal artery proximal PSV/EDV 107.6/24.1 PSV/EDV. 129.2/50.2 . Right renal artery mid 95.1/21.5 Left renal artery mid 113.8/39.3 PSV/EDV. PSV/EDV . Right renal artery distal 77.6/19.3 Left renal artery distal 155.6/28.3 PSV/EDV. PSV/EDV. Right Renal Parenchyma Unable to assess for left renal Upper Pole Medula 22.1/6.4 PSV/EDV. vein thrombosis due to suboptimal Right upper pole medulla EDR 0.3 . image quality. Right upper pole medulla R.I. Left Renal Parenchyma 0.71 . Left upper pole medulla 27.6/6.2 Upper Raj Cortx 12/3.8 PSV/EDV. PSV/EDV . Right upper pole cortex EDR 0.3 . Left upper pole medulla EDR 0.2 . Right upper pole cortex R.I. 0.69 . Left upper pole medulla R.I. 0.78 . Right lower Pole medulla 24.2/6.8 UP Cortex 16/5.6 PSV/EDV. PSV/EDV . Left upper pole cortex EDR 0.3 . Right lower pole medulla EDR 0.3 . Left upper pole cortex R.I. 0.65 . Right lower pole medulla R.I. Left lower Pole medulla 31.9/4.5 0.72 . PSV/EDV . Lower Pole Cortex 15.5/5.1 PSV/EDV. Left lower pole medulla EDR 0.1 . Right lower pole cortex EDR 0.3 . Left lower pole medulla R.I. 0.86 . Right lower pole cortex R.I. 0.67 . Lower Pole Cortx 15.9/5.4 PSV/EDV. Right Renal Hilar Left lower pole cortex EDR 0.3 . Right Hilar avg 50.1/12.7 PSV/EDV. Left lower pole cortex R.I. 0.66 . Right hilar acceleration time 40 Left Renal Hilar m/sec. LT Hilar avg 55.6/9 PSV/EDV . Right Renal Dimensions Left hilar acceleration time 40 Right kidney size 15.47 cm . m/sec. Right cortical dimension 2.35 cm . Left Renal Dimensions Left kidney size 17.71 cm . Left cortical dimension 3.01 cm . Aorta Proximal abdominal aorta 2.20 x 2.23 cm . Proximal abdominal aorta peak systolic velocity is 90.6 cm/sec . Distal abdominal aorta 1.83 x 1.85 cm . Distal abdominal aorta peak systolic velocity is 57.8 cm/sec . VL/Renal Artery Duplex Ultrasound Interpretation Summary Right renal artery velocities are normal with no evidence of stenosis The right renal vein is patent with normal flow pattern Right kidney normal in size Left renal artery velocities are normal, with no evidence of stenosis Unable to visualize flow in the left renal vein Left kidney larger than normal Ordering Physician: Lauro Matson Referring Physician: Harmeet Calderon M.D. Performed By: Barbara Betancourt RVT
[2022-01-08] MEDS: 0.9% Normal Saline 1,000 ML 125 ML IV (19:40)
[2022-01-08 22:24] VITALS: BP 143/92; PULSE 95; RESP 16; TEMP 36.7; O2SAT 100
[2022-01-08 22:51] LABS: Bedside Glucose 85 mg/dL (74-106)
[2022-01-09 01:56] LABS: Protein, Urine (Random) 73.5 mg/dL (<11.9); Protein:Creat Ratio 533 mg/g CRE (0-200)
[2022-01-09 03:09] VITALS: BP 137/94; PULSE 89; RESP 16; TEMP 36.7; O2SAT 99
[2022-01-09] MEDS: 0.9% Normal Saline 1,000 ML 125 ML IV ×3 (03:15→19:31)
[2022-01-09] MEDS: 0.9% Saline Lock 10 ML Syringe IV (03:15)
[2022-01-09 06:06] LABS: Absolute Lymphocyte Count 0.73 X10^3/uL (0.83-4.51); Basophil# 0.05 X10^3/uL; Basophil% 0.9 % (0-1); Eosinophil# 0.05 X10^3/uL; Eosinophils% 0.9 % (0-5); Hematocrit 30.6 % (40-54); Hemoglobin 9.6 g/dL (13.0-16.5); Lymphocyte # 0.73 X10^3/ul (0.83-4.51); Lymphocyte % 13.6 % (19-41); Mean Corp Hgb Conc 31.4 g/dL (32-36); Mean Corpuscular Hgb 28.6 pg (27.0-32.0); Mean Corpuscular Volume 91.1 fL (80-94); Mean Platelet Vol. 11.6 fl (6.2-12.0); Monocyte# 0.57 X10^3/uL; Monocyte% 10.6 % (0-10); NRBC Flagged by Analyzer 0 % (0-5); Neutrophil # 3.95 X10^3/uL (2.7-7.7); Neutrophil % 73.6 % (47-70); Platelet Count 234 K/mm3 (150-450); RBC Distribution Width CV 13.4 % (11.6-14.6); RBC Distribution Width SD 44.9 fl (35.1-43.9); Red Blood Count 3.36 M/mm3 (4.6-6.2); White Blood Count 5.4 K/mm3 (4.4-11.0)
[2022-01-09 06:21] LABS: Bedside Glucose 89 mg/dL (74-106)
[2022-01-09 06:36] LABS: ALB/GLOB Ratio 0.8 RATIO (0.9-2.4); AST(SGOT) 20 U/L (15-37); Alanine Aminotransfer ALT/SGPT 20 U/L (16-61); Albumin, Serum 3.1 g/dL (3.2-5.0); Alkaline Phosphatase 32 U/L (45-117); Anion Gap 7 (5-15); BUN 40 mg/dL (7-18); BUN/Creat Ratio 9.5 RATIO (10-20); Calcium,Total 8.6 mg/dL (8.5-10.1); Chloride 109 mmol/L (98-107); EST Glomerular Filtration Rate 17 mL/min (>60); Est Glom Filt Rate - Afr Amer 20 mL/min (>60); Estimated Creatinine Clearance 25.66 ml/min; Globulin 3.8 g/dL (2.2-4.2); Glucose 90 mg/dL (74-106); Potassium 3.9 mmol/L (3.5-5.1); Protein, Total 6.9 g/dL (6.4-8.2); Sodium Level 141 mmol/L (136-145)
[2022-01-09 09:54] VITALS: BP 148/93; PULSE 81; RESP 18; TEMP 36.4; O2SAT 100
--- NOTE | 2022-01-09 10:10 | CASEMGMT ---
RN MT BOOKKEEPING MACHINE MECHANIC CM to room to meet with patient for initial transition planning/care coordination assessment. CODI AMOR introduced self and role at [facility]. Pt voices understanding and consents to assessment at this time. Pt sitting up in bed in no distress at this time. Pt is A/O at this time and answers all questions appropriately. Care providers, pharmacy, and demographics verified/updated at this time. PCP: Dr Harmeet Calderon Specialists: psychiatrist/ASSISTED LIVING EXECUTIVE DIRECTOR @ [facility] Preferred [facility]acy: [facility] Insurance: [employer] Prescription Benefit: Yes Living Will/HPOA: Pt does not currently have LW/HCPOA and declines info at this time. Pt made aware that he can contact SW as an out-pt and make appt in the future if he decides he would like to talk with someone about this or would like to utilize [facility] social work for advanced directive completion. Pt has [employer] card with information and contact number. Pt expresses understanding. LNOK: Parents, Bob and Jeanie Living Arrangements: Lives w/his parents and aunt in 2-story home w/a few steps to enter. Bedroom and bathroom on main floor. Independent. Pt states he checks his BS's daily. Transportation: Pt states drives self and states no transportation concerns at this time. Parents also drive DME: Has a functioning glucometer w/supplies. Denies having any DME needs. HHC/SNF: No hx of either. No needs identified at this time. Pt wishes to return home and states has no concerns with going home at time of discharge. CM to follow for any discharge planning/needs. Pt voices no concerns/needs at this time. Advised pt to ask for CM if any questions/concerns/needs arise. Voices understanding. PLAN: Home w/family support and discharge plans in place. Deborah HODGES RN, CM
--- NOTE | 2022-01-09 10:19 | CON.PCM.RE_ITS ---
Assessment & Plan Assessment/Plan (1) Acute renal failure: PLAN: This is a relatively young gentleman with diabetes and supposedly normal underlying kidney function as of 3 years ago, who presents with 3 weeks history of back pain and gross hematuria. CT scan is highly suggestive of renal vein thrombosis. What is worrisome is the presence of significant kidney injury. Usually unilateral vein thrombosis does not present with acute kidney injury, as the other kidney is covering. When there is presence of acute kidney injury, it is worrisome for bilateral vein thrombosis or extension of the thrombus. That calls for either thrombolysis therapy or more likely in the situation of bilateral renal vein thrombosis surgical extraction of the thrombus. Vascular surgery consult is pending. In the meantime his kidney function is a little bit better today, that is encouraging. I will check his LDH, consider hematology consult HPI Consult Data Date of Consult: 01/09/22 HPI Narrative Reason for Consultation: Acute kidney injury with back pain and hematuria HPI Narrative: KRISH MARQUIS, is a 41 M who presents 3 weeks back pain and later on he has developed gross hematuria. He has been seen at urgent care and the scan of the kidneys was normal. Finally he mated to emergency room where he was found to have acute kidney injury. Urine showed large blood, some protein, and 1+ bacteria. CAT scan was done and showed enlargement of left kidney, engorged l eft renal vein, all findings suggestive of renal vein thrombosis. Creatinine on admission was 4.9, today it is down to 4.2. He also took large burden of nonsteroidals for the back pain. He is a diabetic. His previous creatinine was measured back in 2019, it was 0.9. [facility] Medical History Anxiety Asperger's disorder Depression Diabetes mellitus, type II HLD (hyperlipidemia) HTN (hypertension) Home Medications venlafaxine 150 mg capsule,extended release 24 hr 150 mg PO DAILY depression 08/31/18 [History Last Taken 01/08/22] bupropion HCl 300 mg 24 hr tablet, extended release 300 mg PO DAILY 11/10/20 [History Last Taken 01/08/22] fenofibrate nanocrystallized 145 mg tablet 145 mg PO DAILY 11/10/20 [History Last Taken 01/08/22] pioglitazone 15 mg tablet 15 mg PO DAILY dm 11/10/20 [History Last Taken 01/08/22] acetaminophen 500 mg tablet 1,000 mg PO Q6H PRN Pain 01/08/22 [History Last Taken 01/08/22] atorvastatin 40 mg tablet 40 mg PO DAILY 01/08/22 [History Last Taken 1 Week Ago ~01/01/22] brexpiprazole 3 mg tablet (Rexulti) 3 mg PO DAILY 01/08/22 [History Last Taken 01/08/22] dulaglutide 1.5 mg/0.5 mL subcutaneous pen injector (Trulicity) 1.5 mg subcut TU 01/08/22 [History Last Taken 01/06/22] lisinopril 5 mg tablet 5 mg PO DAILY 01/08/22 [History Last Taken 01/08/22] metformin 500 mg tablet,extended release 24 hr 2,000 mg PO DAILY 01/08/22 [History Last Taken 01/08/22] Allergy/AdvReac Type Severity Reaction Status Date / Time amoxicillin Allergy Hives Verified 01/08/22 12:56 atorvastatin AdvReac Unknown Vomiting Verified 01/08/22 18:01 Social History Smoking Status: Never smoker ROS Constitutional Constitutional: Denies chills, fever(s), malaise, weakness, weight gain or weig ht loss Eyes Eyes: Denies blindness, blurry vision, change in vision, discongugate gaze, double vision, dry eyes or loss of vision ENT HEENT: Denies dry mouth, epistaxis, hoarseness, loss taste/smell or nasal congestion Cardiovascular Cardiovascular: Denies chest pain, claudication, diaphoresis, dyspnea on exertion, edema, irregular heart rhythm, leg edema, orthopnea, palpitations or syncope Respiratory/Chest Respiratory/Chest: Denies dry cough, dyspnea on exertion, hemoptysis, portable oxygen @ home, productive cough, shortness of breath at rest or wheezing Gastrointestinal Gastrointestinal: Denies abdominal pain, anorexia, diarrhea, dry heaves, hematemesis, hematochezia, melena, nausea, rectal bleeding, vomiting or weight changes Genitourinary Genitourinary: Reports flank pain and hematuria Musculoskeletal Musculoskeletal: Denies abnormal gait, arthralgias, joint stiffness, joint swelling, muscle cramps or myalgias Integumentary Integumentary: Denies dry skin, erythema, jaundice, lesions, pruritus, rash or skin ulcer Neurologic Neurologic: Denies abnormal gait, burning sensations, confusion, focal weakness, frequent falls, headache(s), numbness, restless legs, seizures, syncope, tremor(s) or weakness Psychiatric Psychiatric: Denies anxiety, confusion, depression or hallucinations Endocrine Endocrinology: Denies cold intolerance, fatigue, heat intolerance, polydipsia or polyuria Hematologic/Lymphatic Hematologic/Lymphatic: Denies anemia, easy bleeding or easy bruising Physical Exam Const alert, oriented x3, no apparent distress and average body habitus General Appearance: well developed Orientation / Consciousness: oriented to person, oriented to place and oriented to time Nutritional Appearance: obese HEENT normocephalic Head and Scalp: atraumatic Eyes no scleral icterus Neck no lymphadenopathy Resp no use of accessory muscles and clear to auscultation bilaterally Cardio regular rate, no murmurs and no rub GI Auscultation: normoactive bowel sounds Palpation: soft Skin no rashes or lesions noted Neuro CN's II-XII intact bilaterally, moves all extremities and no focal motor defici ts Psych cooperative Lab / Micro Data Result Diagrams: 01/09/22 05:33 01/09/22 05:33 Labs: Laboratory Results - last 24 hr 01/08/22 13:10: WBC 6.5, RBC 3.77 L, Hgb 10.5 L, Hct 33.0 L, MCV 87.5, MCH 27.9, MCHC 31.8 L, RDW Std Deviation 43.3, RDW Coeff of Jennie 13.5, Plt Count 318, MPV 11.7, Immature Gran % (Auto) 0.500, Neut % (Auto) 81.0 H, Lymph % (Auto) 10.0 L, [place] % (Auto) 7.1, Eos % (Auto) 0.5, Baso % (Auto) 0.9, Absolute Neuts (auto) 5.3, Absolute Lymphs (auto) 0.65 L, Nucleated RBC % 0 01/08/22 13:10: Sodium 138, Potassium 3.8, Chloride 104, Carbon Dioxide 25.0, Anion Gap 9, BUN 42 H, Creatinine 4.96 H, Estim Creat Clear Calc 21.73, Est GFR (MDRD) Af Amer 17 L, Est GFR (MDRD) Non-Af 14 L, BUN/Creatinine Ratio 8.5 L, Glucose 136 H, Calcium 9.4 01/08/22 13:10: Urine Color Liz, Urine Clarity Cloudy, Urine pH 6.0, Ur Specific [place] 1.015, Urine Protein 100 H, Urine Glucose (UA) Normal, Urine Ketones Negative, Urine Occult Blood 250 H, Urine Nitrite Negative, Urine Bilirubin Negative, Urine Urobilinogen Normal, Ur Leukocyte Esterase 25 H, Urine RBC 25-50 SEEN, Urine WBC 0-5 SEEN, Ur Squamous Epith Cells 0 SEEN, Urine Bacteria 1+, Urine Mucus 0 SEEN 01/08/22 22:23: POC Glucose 85 01/09/22 01:30: U Random Total Protein 73.5 H, Urine Creatinine 138.00, Protein/Creatinin Ratio 533 H 01/09/22 05:33: WBC 5.4, RBC 3.36 L, Hgb 9.6 L, Hct 30.6 L, MCV 91.1, MCH 28.6, MCHC 31.4 L, RDW Std Deviation 44.9 H, RDW Coeff of Jennie 13.4, Plt Count 234, MPV 11.6, Immature Gran % (Auto) 0.400, Neut % (Auto) 73.6 H, Lymph % (Auto) 13.6 L, [place] % (Auto) 10.6 H, Eos % (Auto) 0.9, Baso % (Auto) 0.9, Absolute Neuts (auto) 4.0, Absolute Lymphs (auto) 0.73 L, Nucleated RBC % 0 01/09/22 05:33: Sodium 141, Potassium 3.9, Chloride 109 H, Carbon Dioxide 25.0, Anion Gap 7, BUN 40 H, Creatinine 4.20 H, Estim Creat Clear Calc 25.66, Est GFR (MDRD) Af Amer 20 L, Est GFR (MDRD) Non-Af 17 L, BUN/Creatinine Ratio 9.5 L, Glucose 90, Calcium 8.6, Total Bilirubin 0.30, AST 20, ALT 20, Alkaline Phosphatase 32 L, Total Protein 6.9, Albumin 3.1 L, Globulin 3.8, Alb umin/Globulin Ratio 0.8 L 01/09/22 05:57: POC Glucose 89 Radiology Impression Abdomen/Pelvis CT 01/08/22 13:25 IMPRESSION: Bilateral perinephric stranding worse on the left side with enlargement of the left kidney. Findings suggestive of a distended left renal vein and proximal portion of the left gonadal vein suggestive of possible left renal vein thrombosis. A repeat examination following IV contrast is recommended if the patient''s renal profile is acceptable. Bladder wall thickening. Electronically Signed: Louie Valladares MD at 14:00 EDT , Renal Ultrasound 01/08/22 14:56 IMPRESSION: There are no acute findings. Electronically Signed: Chucky Ahn MD at 16:59 EDT ,
[2022-01-09 12:05] LABS: Bedside Glucose 80 mg/dL (74-106)
[2022-01-09 12:57] LABS: LDH 349 U/L (87-241)
--- NOTE | 2022-01-09 13:51 | PCM.PN.HOSP ---
Subjective Subjective Doing well, no issues overnight. Right back pain has improved as has his kidney function Objective Data Objective Data Vital Signs: Vital Signs Temp Pulse Resp BP Pulse Ox O2 Del Method 97.6 F L 81 18 148/93 H 100 Room Air 01/09/22 09:54 01/09/22 09:54 01/09/22 09:54 01/09/22 09:54 01/09/22 09:54 01/09/22 09:54 Oxygen Delivery Method Room Air Weight: 257 lb 9.586 oz Body Mass Index (BMI) 34.9 Intake & Output: Intake and Output for Last 24 Hours 01/08/22 01/09/22 01/10/22 03:59 03:59 03:59 Intake Total 1387.92 / 1387.92 1000 / 1000 Output Total 1900 / 1900 Balance 1387.92 / 1387.92 -900 / -900 Lab / Micro Data Result Diagrams: 01/09/22 05:33 01/09/22 05:33 Labs: Laboratory Results - last 24 hr 01/08/22 22:23: POC Glucose 85 01/09/22 01:30: U Random Total Protein 73.5 H, Urine Creatinine 138.00, Protein/Creatinin Ratio 533 H 01/09/22 05:33: WBC 5.4, RBC 3.36 L, Hgb 9.6 L, Hct 30.6 L, MCV 91.1, MCH 28.6, MCHC 31.4 L, RDW Std Deviation 44.9 H, RDW Coeff of Jennie 13.4, Plt Count 234, MPV 11.6, Immature Gran % (Auto) 0.400, Neut % (Auto) 73.6 H, Lymph % (Auto) 13.6 L, [place] % (Auto) 10.6 H, Eos % (Auto) 0.9, Baso % (Auto) 0.9, Absolute Neuts (auto) 4.0, Absolute Lymphs (auto) 0.73 L, Nucleated RBC % 0 01/09/22 05:33: Sodium 141, Potassium 3.9, Chloride 109 H, Carbon Dioxide 25.0, Anion Gap 7, BUN 40 H, Creatinine 4.20 H, Estim Creat Clear Calc 25.66, Est GFR (MDRD) Af Amer 20 L, Est GFR (MDRD) Non-Af 17 L, BUN/Creatinine Ratio 9.5 L, Glucose 90, Calcium 8.6, Total Bilirubin 0.30, AST 20, ALT 20, Alkaline Phosphatase 32 L, Total Protein 6.9, Albumin 3.1 L, Globulin 3.8, Albumin/Globulin Ratio 0.8 L 01/09/22 05:33: Lactate Dehydrogenase 349 H 01/09/22 05:57: POC Glucose 89 01/09/22 11:46: POC Glucose 80 Radiography Diagnostic Testing: Radiology Impression Abdomen/Pelvis CT 01/08/22 13:25 IMPRESSION: Bilateral perinephric stranding worse on the left side with enlargement of the left kidney. Findings suggestive of a distended left renal vein and proximal portion of the left gonadal vein suggestive of possible left renal vein thrombosis. A repeat examination following IV contrast is recommended if the patient''s renal profile is acceptable. Bladder wall thickening. Electronically Signed: Louie Valladares MD at 14:00 EDT , Renal Ultrasound 01/08/22 14:56 IMPRESSION: There are no acute findings. Electronically Signed: Chucky Ahn MD at 16:59 EDT , Physical Exam Narrative General: Alert, Oriented x3, Cooperative, No apparent distress HEENT: Atraumatic, PERRLA, EOMI, Normocephalic Oral: Moist Mucosa Neck: Supple, No JVD Lungs: Clear to auscultation, Normal air movement, No rhonchi, No wheeze, No rales Cardiovascular: Regular rate, Regular Rhythm, Normal S1, Normal S2, No murmurs Abdomen: Soft, Non Tender, Non-Distended, No Hepato-splenomegaly Extremities: No edema, Capillary Refill Less than 3 Seconds Skin: No rashes, No breakdown Musculoskeletal: No Tenderness to Palpation of Joints or Extremities Neurological: Cranial nerves II-XII grossly intact, Motor Exam 5/5 strength throughout, Sensory exam intact to light touch and pain Psych/Mental Status: Flat affect, Appropriate Assessment & Plan Assessment/Plan (1) Hematuria: PLAN: Plan 1. Acute renal failure with him./HTN ? Etiology at the moment is unclear, there is evidence of a left renal vein thrombosis ? Consult vascular surgery ? Appreciate nephrology's assistance ? Continue with IV fluids ? Ultrasound of his kidneys is unremarkable, does show some left renal hypertrophy ? We will monitor his blood pressures, given his renal failure we will hold his lisinopril 2. DM2 ? Blood sugars are stable ? We will place him on sliding scale insulin with Accu-Cheks AC at bedtime ? Hold his metformin and his Actos as well as his Trulicity secondary to his renal failure ? We will make adjustments as necessary 3. Asperger's syndrome/anxiety/depression ? Stable ? Continue with Effexor, Wellbutrin DVT: SCDs Charges/Coding Visit Charges Inpatient E&M: 42370 Subs Hosp L2
[2022-01-09 14:17] VITALS: BP 150/108; PULSE 86; RESP 18; TEMP 36.7; O2SAT 100
--- NOTE | 2022-01-09 17:05 | EX.PCM.CON.S ---
Assessment & Plan Assessment/Plan (1) Renal vein occlusion: PLAN: -Patient with normal renal function prior to these recent events and with markedly increased creatinine upon admission. -CT and ultrasound imaging reviewed; left renal and gonadal veins dilated, suprarenal inferior vena cava also appears dilated in the left kidney is abnormal contour -Duplex revealed patent right renal vein and unable to visualize vena cava due to bowel gas; no flow was visualized within the left renal vein but again imaging in this location was difficult -While renal vein thrombosis is amongst the potential etiologies it is is rare. In order to cause any renal impairment it would have to impede outflow from both renal veins. CT scan suggest there may be some process above the renal vein confluence and the IVC which could explain his current renal function status. However acute thrombosis of renal vein and superior vena cava both exceptionally rare and would expect an acute event to cause some element of lower extremity edema. Given that he has no edema this suggest a more chronic process causing what I suspect is IVC obstruction. -Given irregular contour of the left kidney I would be concerned that there is possibility of renal cell tumor with tumor thrombus within the left renal vein and IVC. The that further imaging with MRI would help shed light on the possible cause of the renal vein obstruction and determine if there is also inferior vena cava obstruction. -Creatinine has come down a little just with hydration and hopefully with continued improvement he will be able to get an MRI with contrast to further define the situation. In the absence of any imaging abnormality of the kidney will be difficult to determine if thrombus or tumor is causing the obstruction. If it is purely a thrombotic event percutaneous thrombectomy could be performed but this would be contraindicated if the culprit is a soft tissue tumor. We elected to initiate anticoagulation given he presented with hematuria and this would likely just worsen particularly if there is a renal tumor. -Discussed with medical service and they will obtain MRI should renal function permit. Depending on findings patient may be best suited at a tertiary care center. HPI Consult Data Date of Consult: 01/09/22 HPI Narrative HPI Narrative: KRISH MARQUIS, is a 41 M who presents with episodes of hematuria over the last several days as well as approximately 10 to 15 days of left flank pain that had gradual onset before coming severe. He denies any previous episodes of similar nature either with hematuria or pain. He denies pain with urination. He denies any abdominal fullness or bloating and has no lower extremity edema over the course of his symptomatology. His pain worsens with ambulation to the point where he must stop and becomes unbearable. He takes no anticoagulation agents and no [id number] medications or herbal medications. He does have a history of diabetes which is well controlled. He has no personal history of deep or superficial venous thrombosis and has a family history of provoked superficial venous thrombus in his father. His mother had stage IV colon cancer in her early 60s. [facility] Medical History Anxiety Asperger's disorder Depression Diabetes mellitus, type II HLD (hyperlipidemia) HTN (hypertension) Home Medications venlafaxine 150 mg capsule,extended release 24 hr 150 mg PO DAILY depression 08/31/18 [History Last Taken 01/08/22] bupropion HCl 300 mg 24 hr tablet, extended release 300 mg PO DAILY 11/10/20 [History Last Taken 01/08/22] fenofibrate nanocrystallized 145 mg tablet 145 mg PO DAILY 11/10/20 [History Last Taken 01/08/22] pioglitazone 15 mg tablet 15 mg PO DAILY dm 11/10/20 [History Last Taken 01/08/22] acetaminophen 500 mg tablet 1,000 mg PO Q6H PRN Pain 01/08/22 [History Last Taken 01/08/22] atorvastatin 40 mg tablet 40 mg PO DAILY 01/08/22 [History Last Taken 1 Week Ago ~01/01/22] brexpiprazole 3 mg tablet (Rexulti) 3 mg PO DAILY 01/08/22 [History Last Taken 01/08/22] dulaglutide 1.5 mg/0.5 mL subcutaneous pen injector (Trulicity) 1.5 mg subcut TU 01/08/22 [History Last Taken 01/06/22] lisinopril 5 mg tablet 5 mg PO DAILY 01/08/22 [History Last Taken 01/08/22] metformin 500 mg tablet,extended release 24 hr 2,000 mg PO DAILY 01/08/22 [History Last Taken 01/08/22] Allergy/AdvReac Type Severity Reaction Status Date / Time amoxicillin Allergy Hives Verified 01/08/22 12:56 atorvastatin AdvReac Unknown Vomiting Verified 01/08/22 18:01 Social History Smoking Status: Never smoker ROS Constitutional Constitutional: Denies chills, fever(s), frequent falls, lethargy or weakness Eyes Eyes: Denies blind spots, change in vision or loss of vision ENT HEENT: Denies bleeding gums, hoarseness or sore throat Cardiovascular Cardiovascular: Denies abdominal pain, bluish discoloration of hand/feet, chest pain with activity, claudication, cold extremities, cyanosis, dyspnea on exertion, erythema on extremities, irregular heart rhythm, leg edema, leg ulcers, numbness in extremities or weakness in extremities Respiratory/Chest Respiratory/Chest: Denies cough, excessive phlegm production, shortness of breath at rest, shortness of breath with exertion or wheezing Gastrointestinal Gastrointestinal: Denies anorexia, change in stool character, constipation, diarrhea, melena or rectal bleeding Genitourinary Genitourinary: Reports flank pain and hematuria; Denies dysuria Musculoskeletal Musculoskeletal: Denies abnormal gait Integumentary Integumentary: Reports other Details: ; Denies erythema, non-healing lesions or wounds Neurologic Neurologic: Denies abnormal speech, focal weakness, headache(s), loss of vision, numbness, paresthesias or sensory deficit Hematologic/Lymphatic Hematologic/Lymphatic: Denies easy bleeding, easy bruising or lymphadenopathy Physical Exam Const alert, oriented x3, no apparent distress and healthy appearing General Appearance: cooperative; Negative for combative or lethargic Orientation / Consciousness: awake Exam Limitations: no limitations HEENT Head and Scalp: normocephalic and atraumatic Eyes EOMs intact bilaterally General Eye: normal appearance of both eyes Neck full ROM, no lymphadenopathy and thyroid normal General: trachea midline; Negative for lymphadenopathy Thyroid: thyroid normal Lymph Lymphatic: Negative for no lymphadenopathy noted Resp normal respiratory effort and no use of accessory muscles Effort and Inspection: Negative for labored, stridor or audible wheezes Cardio regular rate and regular rhythm Peripheral Pulses: brachial pulses present, radial pulses present, posterior tibial pulses present and dorsalis pedis pulses present GI non-tender and non-distended Back/Spine Cervical Spine: cervical ROM normal Extremity full ROM, normal capillary refill and no clubbing, cyanosis or edema Skin no rashes or lesions noted and no wounds Neuro oriented x3, CN's II-XII intact bilaterally, no focal motor deficits and no sensory deficits noted Psych thought process normal, cooperative, affect normal, speech normal and activity/motor behavior normal Lab / Micro Data Result Diagrams: 01/09/22 05:33 01/09/22 05:33 Labs: Laboratory Results - last 24 hr 01/08/22 22:23: POC Glucose 85 01/09/22 01:30: U Random Total Protein 73.5 H, Urine Creatinine 138.00, Protein/Creatinin Ratio 533 H 01/09/22 05:33: WBC 5.4, RBC 3.36 L, Hgb 9.6 L, Hct 30.6 L, MCV 91.1, MCH 28.6, MCHC 31.4 L, RDW Std Deviation 44.9 H, RDW Coeff of Jennie 13.4, Plt Count 234, MPV 11.6, Immature Gran % (Auto) 0.400, Neut % (Auto) 73.6 H, Lymph % (Auto) 13.6 L, [place] % (Auto) 10.6 H, Eos % (Auto) 0.9, Baso % (Auto) 0.9, Absolute Neuts (auto) 4.0, Absolute Lymphs (auto) 0.73 L, Nucleated RBC % 0 01/09/22 05:33: Sodium 141, Potassium 3.9, Chloride 109 H, Carbon Dioxide 25.0, Anion Gap 7, BUN 40 H, Creatinine 4.20 H, Estim Creat Clear Calc 25.66, Est GFR (MDRD) Af Amer 20 L, Est GFR (MDRD) Non-Af 17 L, BUN/Creatinine Ratio 9.5 L, Glucose 90, Calcium 8.6, Total Bilirubin 0.30, AST 20, ALT 20, Alkaline Phosphatase 32 L, Total Protein 6.9, Albumin 3.1 L, Globulin 3.8, Albumin/Globulin Ratio 0.8 L 01/09/22 05:33: Lactate Dehydrogenase 349 H 01/09/22 05:57: POC Glucose 89 01/09/22 11:46: POC Glucose 80 Radiology Impression Renal Artery Duplex 01/08/22 19:01 Interpretation Summary Right renal artery velocities are normal with no evidence of stenosis The right renal vein is patent with normal flow pattern Right kidney normal in size Left renal artery velocities are normal, with no evidence of stenosis Unable to visualize flow in the left renal vein Left kidney larger than normal Ordering Physician: Lauro Matson Referring Physician: Harmeet Calderon M.D. Performed By: Barbara Betancourt RVT Charges/Coding Visit Charges Inpatient E&M: 59410 Init Hosp L3
[2022-01-09] MEDS: buPROPion (XL) 300 MG TABLET.XL PO (17:25)
[2022-01-09] MEDS: Atorvastatin Calcium 40 MG Tablet PO (17:26)
[2022-01-09] MEDS: Venlafaxine XR 150 MG Capsule PO (17:26)
[2022-01-09] MEDS: BREXPIPRAZOLE 3 MG PO (17:26)
[2022-01-09 17:55] LABS: Bedside Glucose 121 mg/dL (74-106)
[2022-01-09 21:35] VITALS: BP 152/99; PULSE 79; RESP 16; RESP 18; TEMP 36.8; O2SAT 98
[2022-01-09 22:05] LABS: Bedside Glucose 91 mg/dL (74-106)
[2022-01-10] MEDS: 0.9% Normal Saline 1,000 ML 125 ML IV ×3 (03:26→20:27)
[2022-01-10 03:34] VITALS: BP 150/94; PULSE 83; RESP 18; TEMP 36.7; O2SAT 100
[2022-01-10 03:35] VITALS: BP 150/94; PULSE 88; RESP 18; TEMP 36.7; O2SAT 100
[2022-01-10 06:14] LABS: Absolute Lymphocyte Count 0.65 X10^3/uL (0.83-4.51); Absolute Neutrophil Count 4.1 X10^3/uL (2.0-7.7); Basophil# 0.04 X10^3/uL; Basophil% 0.7 % (0-1); Eosinophil# 0.05 X10^3/uL; Eosinophils% 0.9 % (0-5); Hematocrit 29.2 % (40-54); Hemoglobin 9.1 g/dL (13.0-16.5); Lymphocyte # 0.65 X10^3/ul (0.83-4.51); Lymphocyte % 11.8 % (19-41); Mean Corp Hgb Conc 31.2 g/dL (32-36); Mean Corpuscular Hgb 28.2 pg (27.0-32.0); Mean Corpuscular Volume 90.4 fL (80-94); Mean Platelet Vol. 11.8 fl (6.2-12.0); Monocyte# 0.62 X10^3/uL; Monocyte% 11.3 % (0-10); NRBC Flagged by Analyzer 0 % (0-5); Neutrophil # 4.12 X10^3/uL (2.7-7.7); Neutrophil % 74.9 % (47-70); Platelet Count 220 K/mm3 (150-450); RBC Distribution Width CV 13.4 % (11.6-14.6); Red Blood Count 3.23 M/mm3 (4.6-6.2); White Blood Count 5.5 K/mm3 (4.4-11.0)
[2022-01-10 06:47] LABS: Anion Gap 7 (5-15); BUN 34 mg/dL (7-18); BUN/Creat Ratio 9.7 RATIO (10-20); Calcium,Total 8.8 mg/dL (8.5-10.1); Chloride 111 mmol/L (98-107); Creatinine, Serum 3.52 mg/dL (0.70-1.30); EST Glomerular Filtration Rate 21 mL/min (>60); Est Glom Filt Rate - Afr Amer 25 mL/min (>60); Estimated Creatinine Clearance 30.62 ml/min; Glucose 92 mg/dL (74-106); Potassium 3.9 mmol/L (3.5-5.1); Sodium Level 144 mmol/L (136-145)
[2022-01-10 06:50] LABS: Bedside Glucose 83 mg/dL (74-106)
--- NOTE | 2022-01-10 09:05 | PN.HOSP_ITS ---
Subjective Subjective Doing well, no issues overnight. Feeling a little bit better as his renal function is improving. Right flank pain has also improved Objective Data Objective Data Vital Signs: Vital Signs Temp Pulse Resp BP Pulse Ox O2 Del Method 98.0 F 88 18 150/94 H 100 Room Air 01/10/22 03:35 01/10/22 03:35 01/10/22 03:35 01/10/22 03:35 01/10/22 03:35 01/10/22 03:37 Oxygen Delivery Method Room Air Weight: 257 lb 9.586 oz Body Mass Index (BMI) 34.9 Intake & Output: Intake and Output for Last 24 Hours 01/09/22 01/10/22 01/11/22 03:59 03:59 03:59 Intake Total 1387.92 / 1387.92 4069.58 / 4069.58 Output Total 2400 / 2400 975 / 975 Balance 1387.92 / 1387.92 1669.58 / 1669.58 -975 / -975 Lab / Micro Data Result Diagrams: 01/10/22 05:43 01/10/22 05:43 Labs: Laboratory Results - last 24 hr 01/09/22 05:33: Lactate Dehydrogenase 349 H 01/09/22 11:46: POC Glucose 80 01/09/22 17:22: POC Glucose 121 H 01/09/22 21:42: POC Glucose 91 01/10/22 05:43: WBC 5.5, RBC 3.23 L, Hgb 9.1 L, Hct 29.2 L, MCV 90.4, MCH 28.2, MCHC 31.2 L, RDW Std Deviation 45.0 H, RDW Coeff of Jennie 13.4, Plt Count 220, MPV 11.8, Immature Gran % (Auto) 0.400, Neut % (Auto) 74.9 H, Lymph % (Auto) 11.8 L, [place] % (Auto) 11.3 H, Eos % (Auto) 0.9, Baso % (Auto) 0.7, Absolute Neuts (auto) 4.1, Absolute Lymphs (auto) 0.65 L, Nucleated RBC % 0 01/10/22 05:43: Sodium 144, Potassium 3.9, Chloride 111 H, Carbon Dioxide 26.0, Anion Gap 7, BUN 34 H, Creatinine 3.52 H, Estim Creat Clear Calc 30.62, Est GFR (MDRD) Af Amer 25 L, Est GFR (MDRD) Non-Af 21 L, BUN/Creatinine Ratio 9.7 L, Glucose 92, Calcium 8.8 01/10/22 06:29: POC Glucose 83 Radiography Diagnostic Testing: Radiology Impression Renal Artery Duplex 01/08/22 19:01 Interpretation Summary Right renal artery velocities are normal with no evidence of stenosis The right renal vein is patent with normal flow pattern Right kidney normal in size Left renal artery velocities are normal, with no evidence of stenosis Unable to visualize flow in the left renal vein Left kidney larger than normal Ordering Physician: Lauro Matson Referring Physician: Harmeet Calderon M.D. Performed By: Barbara Betancourt RVT Physical Exam Narrative General: Alert, Oriented x3, Cooperative, No apparent distress HEENT: Atraumatic, PERRLA, EOMI, Normocephalic Oral: Moist Mucosa Neck: Supple, No JVD Lungs: Clear to auscultation, Normal air movement, No rhonchi, No wheeze, No rales Cardiovascular: Regular rate, Regular Rhythm, Normal S1, Normal S2, No murmurs Abdomen: Soft, Non Tender, Non-Distended, No Hepato-splenomegaly Extremities: No edema, Capillary Refill Less than 3 Seconds Skin: No rashes, No breakdown Musculoskeletal: No Tenderness to Palpation of Joints or Extremities Neurological: Cranial nerves II-XII grossly intact, Motor Exam 5/5 strength throughout, Sensory exam intact to light touch and pain Psych/Mental Status: Flat affect, Appropriate Assessment & Plan Assessment/Plan (1) Hematuria: PLAN: Plan 1. Acute renal failure with hematuria/HTN ? Etiology at the moment is unclear, there is evidence of a left renal vein thrombosis versus renal cell cancer ? If his GFR climbs above 30, will obtain an MRI of his kidney and see if we can also obtain an MRV ? Consult vascular surgery ? Appreciate nephrology's assistance ? Continue with IV fluids ? Ultrasound of his kidneys is unremarkable, does show some left renal hypertrophy ? We will monitor his blood pressures, given his renal failure we will hold his lisinopril 2. DM2 ? Blood sugars are stable ? We will place him on sliding scale insulin with Accu-Cheks AC at bedtime ? Hold his metformin and his Actos as well as his Trulicity secondary to his renal failure ? We will make adjustments as necessary 3. Asperger's syndrome/anxiety/depression ? Stable ? Continue with Effexor, Wellbutrin DVT: SCDs Charges/Coding Visit Charges Inpatient E&M: 90198 Subs Hosp L2
[2022-01-10 09:30] VITALS: BP 144/88; PULSE 84; RESP 18; TEMP 36.9; O2SAT 100
[2022-01-10] MEDS: buPROPion (XL) 300 MG TABLET.XL PO (09:37)
[2022-01-10] MEDS: Venlafaxine XR 150 MG Capsule PO (09:37)
[2022-01-10] MEDS: Atorvastatin Calcium 40 MG Tablet PO (09:37)
[2022-01-10] MEDS: BREXPIPRAZOLE 3 MG PO (09:37)
[2022-01-10 11:45] LABS: Bedside Glucose 96 mg/dL (74-106)
[2022-01-10 14:49] VITALS: BP 141/98; PULSE 83; RESP 18; TEMP 36.8; O2SAT 98
[2022-01-10 17:10] LABS: Bedside Glucose 78 mg/dL (74-106)
[2022-01-10] MEDS: 0.9% Saline Lock 10 ML Syringe IV (18:37)
[2022-01-10] MEDS: Acetaminophen 500 MG Tablet 1000 MG PO (18:42)
[2022-01-10 20:42] VITALS: BP 151/89; PULSE 83; RESP 18; TEMP 37.1; O2SAT 97
[2022-01-10 20:43] VITALS: BP 151/89; PULSE 83; RESP 18; TEMP 37.1; O2SAT 97
[2022-01-10 22:06] LABS: Bedside Glucose 119 mg/dL (74-106)
[2022-01-11] VITALS (8 sets, daily range): BP systolic 147–160; BP diastolic 95–110; PULSE 74–87; RESP 16–18; TEMP 36.6–36.8; O2SAT 98–100
[2022-01-11] MEDS: 0.9% Normal Saline 1,000 ML 125 ML IV ×2 (04:13→12:26)
[2022-01-11 05:40] LABS: Absolute Lymphocyte Count 0.62 X10^3/uL (0.83-4.51); Absolute Neutrophil Count 3.7 X10^3/uL (2.0-7.7); Basophil# 0.04 X10^3/uL; Basophil% 0.8 % (0-1); Eosinophil# 0.07 X10^3/uL; Eosinophils% 1.4 % (0-5); Hemoglobin 8.7 g/dL (13.0-16.5); Lymphocyte # 0.62 X10^3/ul (0.83-4.51); Lymphocyte % 12.2 % (19-41); Mean Corp Hgb Conc 31.1 g/dL (32-36); Mean Corpuscular Hgb 27.7 pg (27.0-32.0); Mean Corpuscular Volume 89.2 fL (80-94); Mean Platelet Vol. 10.9 fl (6.2-12.0); Monocyte# 0.61 X10^3/uL; NRBC Flagged by Analyzer 0 % (0-5); Neutrophil # 3.74 X10^3/uL (2.7-7.7); Neutrophil % 73.2 % (47-70); Platelet Count 219 K/mm3 (150-450); RBC Distribution Width CV 13.5 % (11.6-14.6); RBC Distribution Width SD 44.3 fl (35.1-43.9); Red Blood Count 3.14 M/mm3 (4.6-6.2); White Blood Count 5.1 K/mm3 (4.4-11.0)
[2022-01-11 05:57] LABS: Anion Gap 6 (5-15); BUN 33 mg/dL (7-18); BUN/Creat Ratio 9.3 RATIO (10-20); Calcium,Total 8.6 mg/dL (8.5-10.1); Chloride 112 mmol/L (98-107); Creatinine, Serum 3.53 mg/dL (0.70-1.30); EST Glomerular Filtration Rate 21 mL/min (>60); Est Glom Filt Rate - Afr Amer 25 mL/min (>60); Estimated Creatinine Clearance 30.53 ml/min; Glucose 91 mg/dL (74-106); Potassium 3.9 mmol/L (3.5-5.1); Sodium Level 143 mmol/L (136-145)
[2022-01-11] MEDS: Atorvastatin Calcium 40 MG Tablet PO (09:05)
[2022-01-11] MEDS: buPROPion (XL) 300 MG TABLET.XL PO (09:05)
[2022-01-11] MEDS: Venlafaxine XR 150 MG Capsule PO (09:05)
[2022-01-11] MEDS: BREXPIPRAZOLE 3 MG PO (09:05)
--- NOTE | 2022-01-11 09:11 | MRI_ITS ---
STUDY: MRI ABDOMEN WITH AND WITHOUT CONTRAST REASON FOR EXAM: Male, 41 years old. Renal infiltrate, concern for cancer vs thrombus -- GFR of 21, cleared with nephrology to do contrast TECHNIQUE: Standardized fat and water weighted pulse sequences were obtained in all 3 orthogonal planes post contrast administration. IV 25 CC CLARISCAN was administered for the contrast portion of the examination. COMPARISON: CT 01/08/2022 FINDINGS: The visualized lung bases are unremarkable. The visualized portions of the heart are within normal limits. Normal liver. Normal gallbladder and extrahepatic biliary system. Normal spleen. Normal pancreas. Normal bilateral adrenal glands. 2 small cysts in the right kidney. 9 x 10 cm heterogeneous mass of the lower and mid pole of the left kidney most worrisome for renal cell carcinoma. There is enlargement and a tubular defect throughout the left renal vein and extending into the inferior vena cava worrisome for tumor thrombus. Normal visualized stomach. Normal small intestine. Normal colon. Normal abdominal aorta. Normal inferior vena cava. Necrotic left para-aortic lymphadenopathy measuring 3 x 3 cm, 1.5 x 2.0 cm, and 3 x 3 cm consistent with metastatic lymphadenopathy. Normal abdominal wall. Normal osseous structures. MRI/MRA Abdomen W/ or W/O Contrast IMPRESSION: Large left renal cell carcinoma of the lower and mid pole of the left kidney with tumor thrombus within the left renal vein and inferior vena cava and metastatic left periaortic lymphadenopathy. Electronically Signed: Carlos Grove MD at 16:36 EDT ,
--- NOTE | 2022-01-11 10:49 | PCM.PN.HOSP ---
Subjective Subjective Doing well, denies any significant pain. States that he feels little bit better than when he came in. Objective Data Objective Data Vital Signs: Vital Signs Temp Pulse Resp BP Pulse Ox O2 Del Method 98.2 F 87 18 147/95 H 100 Room Air 01/11/22 09:27 01/11/22 09:27 01/11/22 09:27 01/11/22 09:27 01/11/22 09:27 01/11/22 09:27 Oxygen Delivery Method Room Air Weight: 257 lb 9.586 oz Body Mass Index (BMI) 34.9 Intake & Output: Intake and Output for Last 24 Hours 01/10/22 01/11/22 01/12/22 03:59 03:59 03:59 Intake Total 4069.58 / 4069.58 1992.75 / 1992.75 970.83 / 970.83 Output Total 2400 / 2400 2300 / 2300 Balance 1669.58 / 1669.58 -306.25 / -306.25 970.83 / 970.83 Lab / Micro Data Result Diagrams: 01/11/22 05:35 01/11/22 05:35 Labs: Laboratory Results - last 24 hr 01/10/22 11:21: POC Glucose 96 01/10/22 16:47: POC Glucose 78 01/10/22 21:37: POC Glucose 119 H 01/11/22 05:35: WBC 5.1, RBC 3.14 L, Hgb 8.7 L, Hct 28.0 L, MCV 89.2, MCH 27.7, MCHC 31.1 L, RDW Std Deviation 44.3 H, RDW Coeff of Jennie 13.5, Plt Count 219, MPV 10.9, Immature Gran % (Auto) 0.400, Neut % (Auto) 73.2 H, Lymph % (Auto) 12.2 L, [place] % (Auto) 12.0 H, Eos % (Auto) 1.4, Baso % (Auto) 0.8, Absolute Neuts (auto) 3.7, Absolute Lymphs (auto) 0.62 L, Nucleated RBC % 0 01/11/22 05:35: Sodium 143, Potassium 3.9, Chloride 112 H, Carbon Dioxide 25.0, Anion Gap 6, BUN 33 H, Creatinine 3.53 H, Estim Creat Clear Calc 30.53, Est GFR (MDRD) Af Amer 25 L, Est GFR (MDRD) Non-Af 21 L, BUN/Creatinine Ratio 9.3 L, Glucose 91, Calcium 8.6 Physical Exam Narrative General: Alert, Oriented x3, Cooperative, No apparent distress HEENT: Atraumatic, PERRLA, EOMI, Normocephalic Oral: Moist Mucosa Neck: Supple, No JVD Lungs: Clear to auscultation, Normal air movement, No rhonchi, No wheeze, No rales Cardiovascular: Regular rate, Regular Rhythm, Normal S1, Normal S2, No murmurs Abdomen: Soft, Non Tender, Non-Distended, No Hepato-splenomegaly Extremities: No edema, Capillary Refill Less than 3 Seconds Skin: No rashes, No breakdown Musculoskeletal: No Tenderness to Palpation of Joints or Extremities Neurological: Cranial nerves II-XII grossly intact, Motor Exam 5/5 strength throughout, Sensory exam intact to light touch and pain Psych/Mental Status: Flat affect, Appropriate Assessment & Plan Assessment/Plan (1) Hematuria: PLAN: Plan 1. Acute renal failure with hematuria/HTN ? Etiology at the moment is unclear, there is evidence of a left renal vein thrombosis versus renal cell cancer ? His renal function is stabilized, I discussed with nephrology and they felt that it would be safe to get an MRI of his abdomen to look at his kidneys on the left, will proceed ? Consult vascular surgery ? Appreciate nephrology's assistance ? Continue with IV fluids ? Ultrasound of his kidneys is unremarkable, does show some left renal hypertrophy ? We will monitor his blood pressures, given his renal failure we will hold his lisinopril 2. DM2 ? Blood sugars are stable ? We will place him on sliding scale insulin with Accu-Cheks AC at bedtime ? Hold his metformin and his Actos as well as his Trulicity secondary to his renal failure ? We will make adjustments as necessary 3. Asperger's syndrome/anxiety/depression ? Stable ? Continue with Effexor, Wellbutrin DVT: SCDs Charges/Coding Visit Charges Inpatient E&M: 47805 Subs Hosp L2
[2022-01-11 12:10] LABS: Bedside Glucose 83 mg/dL (74-106)
--- NOTE | 2022-01-11 17:11 | PCM.PN.REN ---
Subjective Subjective Follow-up on acute kidney injury -Patient feels largely the same -Urine continues to be blood-tinged -No shortness of breath Objective Data Objective Data Vital Signs: Vital Signs Temp Pulse Resp BP Pulse Ox O2 Del Method 97.9 F 78 16 160/99 H 100 Room Air 01/11/22 16:00 01/11/22 16:00 01/11/22 16:00 01/11/22 16:00 01/11/22 16:00 01/11/22 16:00 Oxygen Delivery Method Room Air Weight: 116.845 kg Body Mass Index (BMI) 34.9 Intake & Output: Intake and Output for Last 24 Hours 01/09/22 01/10/22 01/11/22 23:59 23:59 23:59 Intake Total 3987.92 / 3987.92 3463.33 / 3463.33 1970.83 / 1970.83 Output Total 2400 / 2400 1975 / 2300 1125 / 1125 Balance 1587.92 / 1587.92 1488.33 / 1163.33 845.83 / 845.83 Lab / Micro Data Result Diagrams: 01/11/22 05:35 01/11/22 05:35 Labs: Laboratory Results - last 24 hr 01/10/22 21:37: POC Glucose 119 H 01/11/22 05:35: WBC 5.1, RBC 3.14 L, Hgb 8.7 L, Hct 28.0 L, MCV 89.2, MCH 27.7, MCHC 31.1 L, RDW Std Deviation 44.3 H, RDW Coeff of Jennie 13.5, Plt Count 219, MPV 10.9, Immature Gran % (Auto) 0.400, Neut % (Auto) 73.2 H, Lymph % (Auto) 12.2 L, [place] % (Auto) 12.0 H, Eos % (Auto) 1.4, Baso % (Auto) 0.8, Absolute Neuts (auto) 3.7, Absolute Lymphs (auto) 0.62 L, Nucleated RBC % 0 01/11/22 05:35: Sodium 143, Potassium 3.9, Chloride 112 H, Carbon Dioxide 25.0, Anion Gap 6, BUN 33 H, Creatinine 3.53 H, Estim Creat Clear Calc 30.53, Est GFR (MDRD) Af Amer 25 L, Est GFR (MDRD) Non-Af 21 L, BUN/Creatinine Ratio 9.3 L, Glucose 91, Calcium 8.6 01/11/22 11:31: POC Glucose 83 Physical Exam Narrative Alert, responsive no acute distress S1-S2 regular Breath sounds are equal No significant peripheral edema Abdomen is soft Assessment & Plan Assessment/Plan (1) Renal vein occlusion: PLAN: - Chart reviewed comminuted of vascular input -Awaiting MRA (2) Acute renal failure: PLAN: Plan -Etiology of acute kidney injury is unclear. His last serum creatinine that I can see in the chart was on August 2018 where serum creatinine was 0.9 mg/dL -Occlusion probably started around 3 weeks ago when he was experiencing back discomfort. Has been on NSAIDs since then -Serum creatinine peaked at 4.9 mg/dL and leveling off at 3.5 mg/dL -Subnephrotic range proteinuria -Change IV fluid to lactated ringer at 100 cc an hour -Await MRA imaging study -Check urine sodium -Monitor renal function daily -No immediate need for renal replacement therapy -check c3,c4,mercedes,anca,pla2r Will continue to follow with you
[2022-01-11] MEDS: Lactated Ringers 1,000 ML 100 ML IV (18:50)
[2022-01-11 22:00] LABS: Bedside Glucose 106 mg/dL (74-106)
[2022-01-12 01:41] LABS: Bedside Glucose 89 mg/dL (74-106)
[2022-01-12 02:46] VITALS: BP 155/95; PULSE 74; RESP 16; TEMP 36.8; O2SAT 98
[2022-01-12 02:47] VITALS: BP 155/95; PULSE 74; RESP 16; TEMP 36.8; O2SAT 98
[2022-01-12] MEDS: Lactated Ringers 1,000 ML 100 ML IV (04:52)
[2022-01-12 06:17] LABS: Absolute Lymphocyte Count 0.55 X10^3/uL (0.83-4.51); Basophil# 0.03 X10^3/uL; Basophil% 0.6 % (0-1); Eosinophil# 0.07 X10^3/uL; Eosinophils% 1.4 % (0-5); Hematocrit 27.7 % (40-54); Hemoglobin 8.6 g/dL (13.0-16.5); Lymphocyte # 0.55 X10^3/ul (0.83-4.51); Lymphocyte % 10.7 % (19-41); Mean Corpuscular Hgb 27.6 pg (27.0-32.0); Mean Corpuscular Volume 88.8 fL (80-94); Mean Platelet Vol. 11.8 fl (6.2-12.0); Monocyte# 0.53 X10^3/uL; Monocyte% 10.3 % (0-10); NRBC Flagged by Analyzer 0 % (0-5); Neutrophil # 3.95 X10^3/uL (2.7-7.7); Neutrophil % 76.6 % (47-70); POSITIVE DIFFERENTIAL YES; Platelet Count 231 K/mm3 (150-450); RBC Distribution Width CV 13.6 % (11.6-14.6); Red Blood Count 3.12 M/mm3 (4.6-6.2); White Blood Count 5.2 K/mm3 (4.4-11.0)
[2022-01-12 06:21] LABS: Differential Indicated SCAN CRITERIA MET
[2022-01-12 06:50] LABS: Bedside Glucose 78 mg/dL (74-106)
[2022-01-12 06:51] LABS: Anion Gap 6 (5-15); BUN 30 mg/dL (7-18); BUN/Creat Ratio 8.5 RATIO (10-20); Calcium,Total 8.9 mg/dL (8.5-10.1); Chloride 112 mmol/L (98-107); Creatinine, Serum 3.52 mg/dL (0.70-1.30); EST Glomerular Filtration Rate 21 mL/min (>60); Est Glom Filt Rate - Afr Amer 25 mL/min (>60); Estimated Creatinine Clearance 30.62 ml/min; Glucose 88 mg/dL (74-106); Potassium 3.5 mmol/L (3.5-5.1); Sodium Level 144 mmol/L (136-145)
--- NOTE | 2022-01-12 07:42 | PCM.PN.HOSP ---
Subjective Subjective Follow-up for acute kidney injury with left renal mass versus thrombus. Objective Data Objective Data Vital Signs: Vital Signs Temp Pulse Resp BP Pulse Ox O2 Del Method 98.3 F 74 16 155/95 H 98 Room Air 01/12/22 02:47 01/12/22 02:47 01/12/22 02:47 01/12/22 02:47 01/12/22 02:47 01/12/22 02:47 Oxygen Delivery Method Room Air Weight: 257 lb 9.586 oz Body Mass Index (BMI) 34.9 Intake & Output: Intake and Output for Last 24 Hours 01/10/22 01/11/22 01/12/22 23:59 23:59 23:59 Intake Total 3463.33 / 3463.33 3562.50 / 3562.50 1000 / 1000 Output Total 1975 / 2300 1125 / 1125 750 / 750 Balance 1488.33 / 1163.33 2437.50 / 2437.50 250 / 250 Lab / Micro Data Result Diagrams: 01/12/22 05:45 01/12/22 05:45 Labs: Laboratory Results - last 24 hr 01/11/22 11:31: POC Glucose 83 01/11/22 16:44: POC Glucose 89 01/11/22 20:15: POC Glucose 106 01/12/22 05:45: WBC 5.2, RBC 3.12 L, Hgb 8.6 L, Hct 27.7 L, MCV 88.8, MCH 27.6, MCHC 31.0 L, RDW Std Deviation 44.0 H, RDW Coeff of Jennie 13.6, Plt Count 231, MPV 11.8, Immature Gran % (Auto) 0.400, Neut % (Auto) 76.6 H, Lymph % (Auto) 10.7 L, [place] % (Auto) 10.3 H, Eos % (Auto) 1.4, Baso % (Auto) 0.6, Absolute Neuts (auto) 4.0, Absolute Lymphs (auto) 0.55 L, Nucleated RBC % 0 01/12/22 05:45: Sodium 144, Potassium 3.5, Chloride 112 H, Carbon Dioxide 26.0, Anion Gap 6, BUN 30 H, Creatinine 3.52 H, Estim Creat Clear Calc 30.62, Est GFR (MDRD) Af Amer 25 L, Est GFR (MDRD) Non-Af 21 L, BUN/Creatinine Ratio 8.5 L, Glucose 88, Calcium 8.9 01/12/22 06:28: POC Glucose 78 Assessment & Plan Assessment/Plan (1) Hematuria: PLAN: Plan 1. Acute acute kidney injury, exact etiology unclear. Patient has some nephrotic range proteinuria, hematuria. No pyuria, LE 25 nitrite negative. His creatinine at 3.5 to him for last 3 days. Admitted with 4.96. In August 2018 his creatinine was normal 0.9. Started using NSAIDs about 3 weeks ago for back discomfort. Venous duplex did not show obstruction of fluid and renal artery or vein. Kidney ultrasound shows left renal hypertrophy. MRA ordered.. C3-C4 urine in lead II are ordered. No immediate need for renal replacement. 2. Hypertension: MAURISIO with increase in blood pressure, hematuria raises suspicion of nephrotic syndrome. 3. DM2: Glucose in normal range. Actos, Trulicity and metformin on hold. Accu-Cheks before meals and at bedtime covered with Humalog sliding scale 3. Asperger's syndrome/anxiety/depression ? Stable ? Continue with Effexor, Wellbutrin DVT: SCDs Clinical Impression(s) from Imaging Studies Abdomen/Pelvis CT 01/08/22 13:25 IMPRESSION: Bilateral perinephric stranding worse on the left side with enlargement of the left kidney. Findings suggestive of a distended left renal vein and proximal portion of the left gonadal vein suggestive of possible left renal vein thrombosis. A repeat examination following IV contrast is recommended if the patient''s renal profile is acceptable. Bladder wall thickening. Renal Ultrasound 01/08/22 14:56 IMPRESSION: There are no acute findings. Renal Artery Duplex 01/08/22 19:01 Interpretation Summary Right renal artery velocities are normal with no evidence of stenosis The right renal vein is patent with normal flow pattern Right kidney normal in size Left renal artery velocities are normal, with no evidence of stenosis Unable to visualize flow in the left renal vein Left kidney larger than normal Charges/Coding Visit Charges Inpatient E&M: 04922 Subs Hosp L2
[2022-01-12 08:25] VITALS: BP 168/99; PULSE 68; RESP 14; TEMP 36.7; O2SAT 100
[2022-01-12] MEDS: Acetaminophen 500 MG Tablet 1000 MG PO ×2 (08:30→19:29)
[2022-01-12] MEDS: buPROPion (XL) 300 MG TABLET.XL PO (08:30)
[2022-01-12] MEDS: Venlafaxine XR 150 MG Capsule PO (08:30)
[2022-01-12] MEDS: BREXPIPRAZOLE 3 MG PO (08:30)
[2022-01-12] MEDS: Atorvastatin Calcium 40 MG Tablet PO (08:30)
[2022-01-12 12:36] LABS: Bedside Glucose 118 mg/dL (74-106)
--- NOTE | 2022-01-12 14:01 | PN.SURG_ITS ---
Subjective Subjective Patient off the floor. MRA completed but not yet read. Appears to have left kidney heterogeneity/irregularity, extends to renal vein and IVC. Await final radiology interpretation. Objective Data Objective Data Vital Signs: Vital Signs Temp Pulse Resp BP Pulse Ox O2 Del Method 98.1 F 68 14 168/99 H 100 Room Air 01/12/22 08:25 01/12/22 08:25 01/12/22 08:25 01/12/22 08:25 01/12/22 08:25 01/12/22 08:25 Oxygen Delivery Method Room Air Weight: 257 lb 9.586 oz Body Mass Index (BMI) 34.9 Intake & Output: Intake and Output for Last 24 Hours 01/10/22 01/11/22 01/12/22 23:59 23:59 23:59 Intake Total 3463.33 / 3463.33 3562.50 / 3562.50 2180 / 2180 Output Total 1975 / 2300 1125 / 1125 1700 / 1700 Balance 1488.33 / 1163.33 2437.50 / 2437.50 480 / 480 Lab / Micro Data Result Diagrams: 01/12/22 05:45 01/12/22 05:45 Labs: Laboratory Results - last 24 hr 01/11/22 16:44: POC Glucose 89 01/11/22 20:15: POC Glucose 106 01/12/22 05:45: WBC 5.2, RBC 3.12 L, Hgb 8.6 L, Hct 27.7 L, MCV 88.8, MCH 27.6, MCHC 31.0 L, RDW Std Deviation 44.0 H, RDW Coeff of Jennie 13.6, Plt Count 231, MPV 11.8, Immature Gran % (Auto) 0.400, Neut % (Auto) 76.6 H, Lymph % (Auto) 10.7 L, [place] % (Auto) 10.3 H, Eos % (Auto) 1.4, Baso % (Auto) 0.6, Absolute Neuts (auto) 4.0, Absolute Lymphs (auto) 0.55 L, Nucleated RBC % 0 01/12/22 05:45: Sodium 144, Potassium 3.5, Chloride 112 H, Carbon Dioxide 26.0, Anion Gap 6, BUN 30 H, Creatinine 3.52 H, Estim Creat Clear Calc 30.62, Est GFR (MDRD) Af Amer 25 L, Est GFR (MDRD) Non-Af 21 L, BUN/Creatinine Ratio 8.5 L, Glucose 88, Calcium 8.9 01/12/22 06:28: POC Glucose 78 01/12/22 11:58: POC Glucose 118 H Assessment & Plan Assessment/Plan (1) Renal vein occlusion: PLAN: -await final MRA interpretation -will follow
[2022-01-12 14:50] VITALS: BP 161/98; PULSE 76; RESP 12; TEMP 36.7; O2SAT 100
--- NOTE | 2022-01-12 15:54 | PN.RENAL_ITS ---
Subjective Subjective Resting in bed, no complaints. Denies any nausea, vomiting or diarrhea. Objective Data Objective Data Vital Signs: Vital Signs Temp Pulse Resp BP Pulse Ox O2 Del Method 98.0 F 76 12 161/98 H 100 Room Air 01/12/22 14:50 01/12/22 14:50 01/12/22 14:50 01/12/22 14:50 01/12/22 14:50 01/12/22 14:50 Oxygen Delivery Method Room Air Weight: 116.845 kg Body Mass Index (BMI) 34.9 Intake & Output: Intake and Output for Last 24 Hours 01/10/22 01/11/22 01/12/22 23:59 23:59 23:59 Intake Total 3463.33 / 3463.33 3562.50 / 3562.50 2180 / 2180 Output Total 1975 / 2300 1125 / 1125 1700 / 1700 Balance 1488.33 / 1163.33 2437.50 / 2437.50 480 / 480 Lab / Micro Data Result Diagrams: 01/12/22 05:45 01/12/22 05:45 Labs: Laboratory Results - last 24 hr 01/11/22 16:44: POC Glucose 89 01/11/22 20:15: POC Glucose 106 01/12/22 05:45: WBC 5.2, RBC 3.12 L, Hgb 8.6 L, Hct 27.7 L, MCV 88.8, MCH 27.6, MCHC 31.0 L, RDW Std Deviation 44.0 H, RDW Coeff of Jennie 13.6, Plt Count 231, MPV 11.8, Immature Gran % (Auto) 0.400, Neut % (Auto) 76.6 H, Lymph % (Auto) 10.7 L, [place] % (Auto) 10.3 H, Eos % (Auto) 1.4, Baso % (Auto) 0.6, Absolute Neuts (auto) 4.0, Absolute Lymphs (auto) 0.55 L, Nucleated RBC % 0 01/12/22 05:45: Sodium 144, Potassium 3.5, Chloride 112 H, Carbon Dioxide 26.0, Anion Gap 6, BUN 30 H, Creatinine 3.52 H, Estim Creat Clear Calc 30.62, Est GFR (MDRD) Af Amer 25 L, Est GFR (MDRD) Non-Af 21 L, BUN/Creatinine Ratio 8.5 L, Glucose 88, Calcium 8.9 01/12/22 06:28: POC Glucose 78 01/12/22 11:58: POC Glucose 118 H Physical Exam Narrative Alert, responsive no acute distress S1-S2 regular, RRR Breath sounds are equal, clear to auscultate anteriorly and posteriorly No significant peripheral edema Abdomen is soft, nontender Assessment & Plan Assessment/Plan (1) Renal vein occlusion: PLAN: - Awaiting MRA results - Renal ultrasound: No hydronephrosis or calculi. Right kidney 15.2 cm, left kidney 17.8 cm with moderate renal hypertrophy -Renal artery duplex: Left kidney larger than normal. Left and right renal artery velocities normal, no evidence of stenosis. Right renal vein patent with normal flow pattern. Unable to visualize flow in left renal vein (2) Acute renal failure: PLAN: Plan -Etiology of acute kidney injury is unclear. His last serum creatinine that in the chart was on August 2018 where serum creatinine was 0.9 mg/dL. Possible gap in lab work until this admission. -Patient states had routine labs done over the last few years by PCP, will try to obtain labs to chart to determine baseline serum creatinine -Occlusion probably started around 3 weeks ago when he was experiencing back discomfort. Had been on NSAIDs since then, aware to avoid NSAIDs at this time -Serum creatinine peaked at 4.9 mg/dL and leveling off at 3.5 mg/dL -Subnephrotic range proteinuria, urine protein creatinine ratio 533 mg/g -Stop IV fluids -Await MRA imaging study -Check urine sodium -Monitor renal function daily -No immediate need for renal replacement therapy - lisinopril and metformin on hold -Pending serologies: c3,c4,mercedes,anca,pla2r - Reviewed with Dr. Chua/ Will continue to follow with you
[2022-01-12] MEDS: 0.9% Saline Lock 10 ML Syringe IV ×2 (17:19→21:49)
[2022-01-12 18:11] LABS: Bedside Glucose 104 mg/dL (74-106)
[2022-01-12 21:46] VITALS: BP 148/98; PULSE 84; RESP 18; TEMP 36.8; O2SAT 96
[2022-01-12 21:52] VITALS: BP 148/98; PULSE 84; RESP 18; TEMP 36.8; O2SAT 96
[2022-01-12 22:45] LABS: Bedside Glucose 106 mg/dL (74-106)
[2022-01-13 03:19] VITALS: BP 164/92; PULSE 73; RESP 16; TEMP 37; O2SAT 99
[2022-01-13] MEDS: Acetaminophen 500 MG Tablet 1000 MG PO (03:22)
[2022-01-13 03:31] VITALS: BP 164/92; PULSE 73; RESP 16; TEMP 37; O2SAT 99
--- NOTE | 2022-01-13 07:20 | PCM.PN.HOSP ---
Objective Data Objective Data Vital Signs: Vital Signs Temp Pulse Resp BP Pulse Ox O2 Del Method 98.6 F 73 16 164/92 H 99 Room Air 01/13/22 03:31 01/13/22 03:31 01/13/22 03:31 01/13/22 03:31 01/13/22 03:31 01/13/22 03:31 Oxygen Delivery Method Room Air Weight: 257 lb 9.586 oz Body Mass Index (BMI) 34.9 Intake & Output: Intake and Output for Last 24 Hours 01/11/22 01/12/22 01/13/22 23:59 23:59 23:59 Intake Total 3562.50 / 3562.50 3950 / 3950 800 / 800 Output Total 1125 / 1125 3050 / 3050 975 / 975 Balance 2437.50 / 2437.50 900 / 900 -175 / -175 Lab / Micro Data Result Diagrams: 01/12/22 05:45 01/12/22 05:45 Labs: Laboratory Results - last 24 hr 01/12/22 11:58: POC Glucose 118 H 01/12/22 17:15: POC Glucose 104 01/12/22 21:48: POC Glucose 106 Radiography Diagnostic Testing: Radiology Impression Abdomen MRA 01/11/22 09:11 IMPRESSION: Large left renal cell carcinoma of the lower and mid pole of the left kidney with tumor thrombus within the left renal vein and inferior vena cava and metastatic left periaortic lymphadenopathy. Electronically Signed: Carlos Grove MD at 16:36 EDT , Physical Exam Narrative General: Alert, Oriented x3, Cooperative HEENT: Atraumatic, PERRLA, EOMI, Normocephalic Oral: No Gingival or Mucosal Lesions/ Ulcerations Neck: Supple, No JVD, Negative Carotid Bruits Lungs:? Air entry diminished in bilateral lung bases.? No crepitation/rhonchi Cardiovascular: Regular rate, Regular Rhythm, Normal S1, Normal S2, No murmurs Abdomen: Bowel Sounds Present, Soft, Non Tender, Non-Distended : No renal angle tenderness.? No suprapubic tenderness. Extremities: No edema, Capillary Refill Less than 3 Seconds Skin: No rashes, No breakdown Musculoskeletal: No Tenderness to Palpation of Joints or Extremities Neurological: Cranial nerves II-XII grossly intact, DTR? 2+/4 and Symmetrical, Neuro grossly intact Psych/Mental Status: Flat affect. Assessment & Plan Assessment/Plan (1) Hematuria: PLAN: Plan 1. Acute acute kidney injury, exact etiology unclear. Patient has some nephrotic range proteinuria, hematuria. No pyuria, LE 25 nitrite negative. His creatinine at 3.5 to him for last 3 days. Admitted with 4.96. In August 2018 his creatinine was normal 0.9. Started using NSAIDs about 3 weeks ago for back discomfort. Venous duplex did not show obstruction of fluid and renal artery or vein. Kidney ultrasound shows left renal hypertrophy. MRA ordered.. C3-C4 urine in lead II are ordered. No immediate need for renal replacement. 2. Hypertension: MAURISIO with increase in blood pressure, hematuria raises suspicion of nephrotic syndrome. 3. DM2: Glucose in normal range. Actos, Trulicity and metformin on hold. Accu-Cheks before meals and at bedtime covered with Humalog sliding scale 3. Asperger's syndrome/anxiety/depression ? Stable ? Continue with Effexor, Wellbutrin DVT: SCDs Clinical Impression(s) from Imaging Studies Abdomen/Pelvis CT 01/08/22 13:25 IMPRESSION: Bilateral perinephric stranding worse on the left side with enlargement of the left kidney. Findings suggestive of a distended left renal vein and proximal portion of the left gonadal vein suggestive of possible left renal vein thrombosis. A repeat examination following IV contrast is recommended if the patient''s renal profile is acceptable. Bladder wall thickening. Renal Ultrasound 01/08/22 14:56 IMPRESSION: There are no acute findings. Renal Artery Duplex 01/08/22 19:01 Interpretation Summary Right renal artery velocities are normal with no evidence of stenosis The right renal vein is patent with normal flow pattern Right kidney normal in size Left renal artery velocities are normal, with no evidence of stenosis Unable to visualize flow in the left renal vein Left kidney larger than normal
[2022-01-13 07:41] LABS: Bedside Glucose 83 mg/dL (74-106)
--- NOTE | 2022-01-13 07:56 | CON.PCM.UR_ITS ---
HPI Consult Data Date of Consult: 01/13/22 HPI Narrative HPI Narrative: 41-year-old male presented to the emergency room with acute renal failure thrombus in the renal vein enlarged kidney. At that point when talking to the emergency room physicians I recommended the patient be transferred to a tertiary care facility. Then today I got a call saying he was admitted to this hospital for further workup. MRI was done which is appropriate again confirms he has an i nfiltrated mass in the left kidney with a level III inferior vena cava thrombus. Patient will need to be transferred to tertiary care facility to manage the thrombus as this type of surgery cannot be performed at [facility]. If you have any questions or concerns please let me know. [facility] Medical History Anxiety Asperger's disorder Depression Diabetes mellitus, type II HLD (hyperlipidemia) HTN (hypertension) Home Medications venlafaxine 150 mg capsule,extended release 24 hr 150 mg PO DAILY depression 08/31/18 [History Last Taken 01/08/22] bupropion HCl 300 mg 24 hr tablet, extended release 300 mg PO DAILY 11/10/20 [History Last Taken 01/08/22] fenofibrate nanocrystallized 145 mg tablet 145 mg PO DAILY 11/10/20 [History Last Taken 01/08/22] pioglitazone 15 mg tablet 15 mg PO DAILY dm 11/10/20 [History Last Taken 01/08/22] acetaminophen 500 mg tablet 1,000 mg PO Q6H PRN Pain 01/08/22 [History Last Taken 01/08/22] atorvastatin 40 mg tablet 40 mg PO DAILY 01/08/22 [History Last Taken 1 Week Ago ~01/01/22] brexpiprazole 3 mg tablet (Rexulti) 3 mg PO DAILY 01/08/22 [History Last Taken 01/08/22] dulaglutide 1.5 mg/0.5 mL subcutaneous pen injector (Trulicity) 1.5 mg subcut TU 01/08/22 [History Last Taken 01/06/22] lisinopril 5 mg tablet 5 mg PO DAILY 01/08/22 [History Last Taken 01/08/22] metformin 500 mg tablet,extended release 24 hr 2,000 mg PO DAILY 01/08/22 [History Last Taken 01/08/22] Allergy/AdvReac Type Severity Reaction Status Date / Time amoxicillin Allergy Hives Verified 01/08/22 12:56 atorvastatin AdvReac Unknown Vomiting Verified 01/08/22 18:01 Social History Smoking Status: Never smoker Lab / Micro Data Result Diagrams: 01/12/22 05:45 01/12/22 05:45 Labs: Laboratory Results - last 24 hr 01/12/22 11:58: POC Glucose 118 H 01/12/22 17:15: POC Glucose 104 01/12/22 21:48: POC Glucose 106 01/13/22 06:38: POC Glucose 83 Radiology Impression Abdomen MRA 01/11/22 09:11 IMPRESSION: Large left renal cell carcinoma of the lower and mid pole of the left kidney with tumor thrombus within the left renal vein and inferior vena cava and metastatic left periaortic lymphadenopathy. Electronically Signed: Carlos Grove MD at 16:36 EDT ,
[2022-01-13 08:05] LABS: BUN 28 mg/dL (7-18); BUN/Creat Ratio 7.9 RATIO (10-20); Calcium,Total 8.7 mg/dL (8.5-10.1); Chloride 111 mmol/L (98-107); Creatinine, Serum 3.54 mg/dL (0.70-1.30); EST Glomerular Filtration Rate 20 mL/min (>60); Est Glom Filt Rate - Afr Amer 25 mL/min (>60); Estimated Creatinine Clearance 30.45 ml/min; Glucose 92 mg/dL (74-106); Potassium 3.4 mmol/L (3.5-5.1); Sodium Level 144 mmol/L (136-145)
[2022-01-13 08:45] VITALS: BP 150/94; PULSE 100; RESP 18; TEMP 36.7; O2SAT 100
[2022-01-13] MEDS: Atorvastatin Calcium 40 MG Tablet PO (08:46)
[2022-01-13] MEDS: buPROPion (XL) 300 MG TABLET.XL PO (08:46)
[2022-01-13] MEDS: BREXPIPRAZOLE 3 MG PO (08:46)
[2022-01-13] MEDS: Venlafaxine XR 150 MG Capsule PO (08:46)
--- NOTE | 2022-01-13 10:06 | DCINST_ITS ---
Discharge Instructions Diet Discharge Diet: 2000 mg Sodium Diet Activity Discharge Activity: Return to Normal Activity and May Not Drive Dressing / Incision Call your doctor if you observe: Fever of 101 or Higher, Coldness, Increased Pain, Numbness or Tingling, Change in Color, Inability to urinate, Inability to have a bowel movement, Shortness of breath, Dizziness, Fainting spells, Swelling in the ankles, Chest pain, Prolonged hiccupping, Increased palpitations (irregular heartbeat), Calf discomfort and Uncontrolled pain Follow Up Care Test Results: Test results from this visit will be discussed in further detail at your follow- up appointment, if applicable. Discharge Plan Admission Admit Date/Time: 01/08/22 18:44 Primary Reason for Your Visit: Acute kidney injury Attending Provider: Emerson Chua Primary Care Provider: Harmeet Calderon Consulting Providers: Andrea Hawley ; Kermit Parr ; Lauro Matson ; Jose Carver Discharge Orders/Prescriptions Prescriptions: New insulin lispro [Humalog KwikPen Insulin] 100 unit/mL Insulin Pen See Protocol subcut ACHS Qty: 15 0RF Protocol: 3. Sliding Scale Insulin Med Dosing Condition: 150-189 mg/dl = 1 unit Condition: 190-229 mg/dl = 2 units Condition: 230-269 mg/dl = 3 units Condition: 270-309 mg/dl = 4 units Condition: 310-349 mg/dl = 5 units Condition: 350-399 mg/dl = 6 units Condition: 400-449 mg/dl = 7 units Condition: Greater than 449 call physician Protocol Text: - Use for Total Daily Dose of Insulin 37-55 units - Obsese, infected, or steroid patients MEDIUM DOSING ALGORITHIM amlodipine 10 mg tablet 10 mg PO DAILY Qty: 30 0RF Continued venlafaxine 150 MG capsule 150 mg PO DAILY bupropion HCl 300 mg tablet extended release 24 hr 300 mg PO DAILY Label Comments: TAKE 1 TABLET BY MOUTH ONCE DAILY atorvastatin 40 mg tablet 40 mg PO DAILY acetaminophen 500 mg Tablet 1,000 mg PO Q6H PRN (Reason: Pain) Trulicity 1.5 mg/0.5 mL pen injector 1.5 mg SUBCUT TU Rexulti 3 mg tablet 3 mg PO DAILY Label Comments: TAKE 1 TABLET BY MOUTH ONCE DAILY Discontinued pioglitazone 15 mg tablet 15 mg PO DAILY Label Comments: TAKE 1 TABLET BY MOUTH ONCE DAILY fenofibrate nanocrystallized 145 mg tablet 145 mg PO DAILY Label Comments: TAKE 1 TABLET BY MOUTH ONCE DAILY lisinopril 5 mg tablet 5 mg PO DAILY metformin 500 mg tablet extended release 24 hr 2,000 mg PO DAILY Referrals / Follow Up: Harmeet Calderon MD [Primary Care Provider] - Within 2 Weeks Manjit Geronimo DO [Med Staff - Active Staff] - (Follow-up with Dr. Geronimo at 8:40 AM on 01/16/2022) Disposition Disposition (needs filled in before D/C Order can be placed): Home, Self Care
--- NOTE | 2022-01-13 11:46 | PCM.PN.REN ---
Subjective Subjective Following for MAURISIO Patient is sitting up in bed. Denies any complaints today. States back pain has improved but still having hematuria. Family members at bedside. Objective Data Objective Data Vital Signs: Vital Signs Temp Pulse Resp BP Pulse Ox O2 Del Method 98.0 F 100 18 150/94 H 100 Room Air 01/13/22 08:45 01/13/22 08:45 01/13/22 08:45 01/13/22 08:45 01/13/22 08:45 01/13/22 08:45 Oxygen Delivery Method Room Air Weight: 116.845 kg Body Mass Index (BMI) 34.9 Intake & Output: Intake and Output for Last 24 Hours 01/11/22 01/12/22 01/13/22 23:59 23:59 23:59 Intake Total 3562.50 / 3562.50 3950 / 3950 800 / 800 Output Total 1125 / 1125 3050 / 3050 975 / 975 Balance 2437.50 / 2437.50 900 / 900 -175 / -175 Lab / Micro Data Result Diagrams: 01/12/22 05:45 01/13/22 06:20 Labs: Laboratory Results - last 24 hr 01/12/22 11:58: POC Glucose 118 H 01/12/22 17:15: POC Glucose 104 01/12/22 21:48: POC Glucose 106 01/13/22 06:20: Sodium 144, Potassium 3.4 L, Chloride 111 H, Carbon Dioxide 25.0, BUN 28 H, Creatinine 3.54 H, Estim Creat Clear Calc 30.45, Est GFR (MDRD) Af Amer 25 L, Est GFR (MDRD) Non-Af 20 L, BUN/Creatinine Ratio 7.9 L, Glucose 92, Calcium 8.7, Phosphorus 4.0, Albumin 3.0 L 01/13/22 06:38: POC Glucose 83 Radiography Diagnostic Testing: Radiology Impression Abdomen MRA 01/11/22 09:11 IMPRESSION: Large left renal cell carcinoma of the lower and mid pole of the left kidney with tumor thrombus within the left renal vein and inferior vena cava and metastatic left periaortic lymphadenopathy. Electronically Signed: Carlos Grove MD at 16:36 EDT , Physical Exam Narrative Alert, responsive no acute distress S1-S2 regular, RRR Breath sounds are equal, clear to auscultate anteriorly and posteriorly No significant peripheral edema Abdomen is soft, nontender Assessment & Plan Assessment/Plan (1) Renal vein occlusion: PLAN: -MRA results: Large left renal cell carcinoma of the lower and mid pole of the left kidney with tumor thrombus within the left renal vein and inferior vena cava and metastatic left periaortic lymphadenopathy. -Above results were reviewed with patient, his father and mother who both are at bedside. Patient to be referred to [facility] oncology and urology. Has appointment with Dr. Geronimo this Wednesday. - Renal ultrasound: No hydronephrosis or calculi. Right kidney 15.2 cm, left kidney 17.8 cm with moderate renal hypertrophy -Renal artery duplex: Left kidney larger than normal. Left and right renal artery velocities normal, no evidence of stenosis. Right renal vein patent with normal flow pattern. Unable to visualize flow in left renal vein (2) Acute renal failure: PLAN: Plan -Etiology of acute kidney injury is unclear. Obtained labs from PCP: April 30, 2021 creatinine 0.93 mg/dL, estimated GFR greater than 60 mL/min. Hemoglobin A1c 11.4%. Labs from 10/15/2020 creatinine 0.76 mg/dL, hemoglobin A1c 9.6%. -Occlusion probably started around 3 weeks ago when he was experiencing back discomfort. Had been on NSAIDs since then, aware to avoid NSAIDs at this time -Serum creatinine peaked at 4.9 mg/dL (admission creatinine) and leveling off at 3.5 mg/dL. Patient is nonoliguric and appears to be near euvolemic. No acute indication for [employer]. Will arrange for hospital follow-up and monitor creatinine trends. To note he had normal creatinine as of April 2021. He does have a history of uncontrolled diabetes with last known hemoglobin A1c 11.4%. -Subnephrotic range proteinuria, urine protein creatinine ratio 533 mg/g -Stopped IV fluids 01/12. Encouraged patient to increase oral solute intake in hospital and also at home. -lisinopril and metformin on hold in hospital - reviewed with patient and mother/father to avoid NSAIDs including meloxicam. Lisinopril and metformin to be on hold at time of discharge. -Pending serologies: c3,c4,mercedes,anca,pla2r - Reviewed with Dr. Chua. Possible discharge to home today. Will arrange for hospital follow-up. Will continue to follow with you
--- NOTE | 2022-01-13 12:14 | DS.PCM_ITS ---
Providers Date of Admission: 01/08/22 Date of Discharge: 01/13/22 Primary Care Physician: Dr. Harmeet Calderon MD Consultations 01/08/22 19:01 Consult: Nephrology Routine Consulting Provider: Andrea Hawley Reason for Consult: renal failure EMERGENT Consult: No Notified: Yes Date Notified: 01/08/22 Time Notified: 18:56 Method of Notification: Verbal Consult: Vascular Surgery Routine Consulting Provider: Kermit Parr Reason for Consult: Abnormal CT scan of the left kidney, possible left renal thrombosis EMERGENT Consult: No Notified: Yes Date Notified: 01/08/22 Time Notified: 18:57 Method of Notification: Verbal Reason For Visit: ACUTE RENAL FAILURE Diagnosis Discharge Diagnosis (1) Renal vein occlusion: Status: Acute Code(s): I82.3 - Embolism and thrombosis of renal vein (2) Acute renal failure: Status: Acute Code(s): N17.9 - Acute kidney failure, unspecified Medications at Discharge Home Medications venlafaxine 150 mg capsule,extended release 24 hr 150 mg PO DAILY depression 08/31/18 bupropion HCl 300 mg 24 hr tablet, extended release 300 mg PO DAILY 11/10/20 acetaminophen 500 mg tablet 1,000 mg PO Q6H PRN Pain 01/08/22 atorvastatin 40 mg tablet 40 mg PO DAILY 01/08/22 brexpiprazole 3 mg tablet (Rexulti) 3 mg PO DAILY 01/08/22 dulaglutide 1.5 mg/0.5 mL subcutaneous pen injector (Trulicity) 1.5 mg subcut TU 01/08/22 amlodipine 10 mg tablet 10 mg PO DAILY #30 tabs 01/13/22 insulin lispro 100 unit/mL subcutaneous pen (Humalog KwikPen (U-100) Insulin) See Protocol subcut ACHS #15 mL 01/13/22 Hospital Course Summary of Care Provided Hospital Course: This is 41-year-old gentleman was admitted through ER for evaluation of right lower back pain for 3 weeks. In the ED, patient was found to be in MAURISIO and CT of the abdomen pelvis which showed bilateral perinephric stranding worse on the left side with enlargement of the left kidney, finding suggestive of distended left renal vein and proximal portion of left gonadal vein suggestive of possible left renal vein thrombosis. Renal ultrasound was done which was unremarkable. Vascular surgery was consulted and renal artery duplex was ordered and patient further admitted. 1. Acute acute kidney injury, exact etiology unclear. Patient has some nephrotic range proteinuria, hematuria. No pyuria, LE 25 nitrite negative. His creatinine at 3.5 to him for last [address] [facility] medical record was reviewed. Patient last blood work in April 2021 showed BUN 11, creatinine 0.93, A1c 11.4%. Patient has triglyceride 638, TC 231, HDL 24 and non-HDL c holesterol 207. Direct LDL less than 100 mg/dL. Admitting creatinine was 4.96. In August 2018. As per mother used NSAID, ibuprofen sparingly for right lower back pain for about 3 weeks. Venous duplex did not show obstruction of fluid and renal artery or vein. Kidney ultrasound shows left renal hypertrophy. ?c3,c4,mercedes,anca,pla2r serologies are pending no immediate need for renal replacement. Abdominal MRA was done which reported large left renal cell carcinoma of the lower and mid pole of the leftkidney with tumor thrombus within the left renal vein and inferior vena cava and metastatic left periaortic lymphadenopathy. 01/13: Family meeting was done with patient, patient's mother and father and aunt in the room with nephrology, JOSHUA Linn. We discussed about the hospital work- up, acute kidney injury, labs including creatinine, and abdominal imaging including MRA. Medical record from [facility] reviewed. Patient still has mild hematuria. I told the parents about the above MRI finding, urology consult was OPM was Level 3 IVC thrombus and recommended transfer to tertiary care facility and vascular surgery opinion. Overall decision was made to start with oncologist Dr. Manjit Geronimo who is also patient's mother oncologist. I talked to him in appointment made at his office at 8:40 AM on 01/16/2022. He will make arrangement for urgent appointment with surgical oncology/Uro- oncologist in [facility]. Other nephrotoxic medications including lisinopril, metformin, pioglitazone and fenofibrate discontinued. NSAIDs discontinued 2. Hypertension: MAURISIO with increase in blood pressure, hematuria probably due to renal cell carcinoma as mentioned above. Started on amlodipine 10 mg daily. 3. DM2: Glucose in normal range. Actos, Trulicity and metformin on hold. Accu-Cheks before meals and at bedtime covered with Humalog sliding scale. Patient glucose is in normal range. Prescription for given for Humalog insulin as per sliding scale. 3. Asperger's syndrome/anxiety/depression ? Continue with Effexor, Wellbutrin DVT: SCDs Discharge medication reconciliation done. Discharge follow-up instructions completed. Discharge process discussed with the patient and all questions were answered to patient's satisfaction. Total time spent, exact 45 minutes on discharge meds reconciliation, examination, coordination of care with nurses and ancillary staff, review of imaging and blood test and discussion with the patient on follow-up instructions. Clinical Impression(s) from Imaging Studies Abdomen/Pelvis CT 01/08/22 13:25 IMPRESSION: Bilateral perinephric stranding worse on the left side with enlargement of the left kidney. Findings suggestive of a distended left renal vein and proximal portion of the left gonadal vein suggestive of possible left renal vein thrombosis. A repeat examination following IV contrast is recommended if the patient''s renal profile is acceptable. Bladder wall thickening. Renal Ultrasound 01/08/22 14:56 IMPRESSION: There are no acute findings. Renal Artery Duplex 01/08/22 19:01 Interpretation Summary Right renal artery velocities are normal with no evidence of stenosis The right renal vein is patent with normal flow pattern Right kidney normal in size Left renal artery velocities are normal, with no evidence of stenosis Unable to visualize flow in the left renal vein Left kidney larger than normal Abdomen MRA 01/11/22 09:11 IMPRESSION: Large left renal cell carcinoma of the lower and mid pole of the left kidney with tumor thrombus within the left renal vein and inferior vena cava and metastatic left periaortic lymphadenopathy. Physical Exam Narrative Seen and examined. Patient's history, exam findings, labs and MRA findings discussed with the parents at the bedside. Patient is still has mild hematuria but no decrease in urine output. Complain of mild chronic right lower back pain General: Alert, Oriented x3, Cooperative HEENT: Atraumatic, PERRLA, EOMI, Normocephalic Oral: No Gingival or Mucosal Lesions/ Ulcerations Neck: Supple, No JVD, Negative Carotid Bruits Lungs:? Air entry diminished in bilateral lung bases.? No crepitation/rhonchi Cardiovascular: Regular rate, Regular Rhythm, Normal S1, Normal S2, No murmurs Abdomen: Bowel Sounds Present, Soft, Non Tender, Non-Distended : Spontaneous voiding. No burning micturition. No renal angle tenderness.? No suprapubic tenderness. Extremities: No edema, Capillary Refill Less than 3 Seconds Skin: No rashes, No breakdown Musculoskeletal: Mild tenderness of right lower paraspinal muscle. ROM is full. Neurological: Cranial nerves II-XII grossly intact, DTR? 2+/4, Neuro grossly intact Psych/Mental Status: Flat affect. Weight / BMI Weight Weight: 257 lb 9.586 oz Body Mass Index (BMI) 34.9 ABG / Lab / Microbiology Data Result Diagrams: 01/12/22 05:45 01/13/22 06:20 Laboratory: Laboratory Results - last 24 hr 01/12/22 11:58: POC Glucose 118 H 01/12/22 17:15: POC Glucose 104 01/12/22 21:48: POC Glucose 106 01/13/22 06:20: Sodium 144, Potassium 3.4 L, Chloride 111 H, Carbon Dioxide 25.0, BUN 28 H, Creatinine 3.54 H, Estim Creat Clear Calc 30.45, Est GFR (MDRD) Af Amer 25 L, Est GFR (MDRD) Non-Af 20 L, BUN/Creatinine Ratio 7.9 L, Glucose 92, Calcium 8.7, Phosphorus 4.0, Albumin 3.0 L 01/13/22 06:38: POC Glucose 83 Radiography Diagnostic Testing: Radiology Impression Abdomen MRA 01/11/22 09:11 IMPRESSION: Large left renal cell carcinoma of the lower and mid pole of the left kidney with tumor thrombus within the left renal vein and inferior vena cava and metastatic left periaortic lymphadenopathy. Electronically Signed: Carlos Grove MD at 16:36 EDT , D/C Instructions Discharge Diet: 2000 mg Sodium Diet Call your doctor if you observe: Fever of 101 or Higher, Coldness, Increased Pain, Numbness or Tingling, Change in Color, Inability to urinate, Inability to have a bowel movement, Shortness of breath, Dizziness, Fainting spells, Swelling in the ankles, Chest pain, Prolonged hiccupping, Increased palpitations (irregular heartbeat), Calf discomfort and Uncontrolled pain Meaningful Use Info Meaningful Use Diagnoses (Choose all that apply): None applicable Discharge Plan Admission Admit Date/Time: 01/08/22 18:44 Primary Reason for Your Visit: Acute kidney injury Attending Provider: Emerson Chua Primary Care Provider: Harmeet Calderon Consulting Providers: Andrea Hawley ; Kermit Parr ; Lauro Matson ; Jose Carver Discharge Orders/Prescriptions Prescriptions: New insulin lispro [Humalog KwikPen Insulin] 100 unit/mL Insulin Pen See Protocol subcut ACHS Qty: 15 0RF Protocol: 3. Sliding Scale Insulin Med Dosing Condition: 150-189 mg/dl = 1 unit Condition: 190-229 mg/dl = 2 units Condition: 230-269 mg/dl = 3 units Condition: 270-309 mg/dl = 4 units Condition: 310-349 mg/dl = 5 units Condition: 350-399 mg/dl = 6 units Condition: 400-449 mg/dl = 7 units Condition: Greater than 449 call physician Protocol Text: - Use for Total Daily Dose of Insulin 37-55 units - Obsese, infected, or steroid patients MEDIUM DOSING ALGORITHIM amlodipine 10 mg tablet 10 mg PO DAILY Qty: 30 0RF Continued venlafaxine 150 MG capsule 150 mg PO DAILY bupropion HCl 300 mg tablet extended release 24 hr 300 mg PO DAILY Label Comments: TAKE 1 TABLET BY MOUTH ONCE DAILY atorvastatin 40 mg tablet 40 mg PO DAILY acetaminophen 500 mg Tablet 1,000 mg PO Q6H PRN (Reason: Pain) Trulicity 1.5 mg/0.5 mL pen injector 1.5 mg SUBCUT TU Rexulti 3 mg tablet 3 mg PO DAILY Label Comments: TAKE 1 TABLET BY MOUTH ONCE DAILY Discontinued pioglitazone 15 mg tablet 15 mg PO DAILY Label Comments: TAKE 1 TABLET BY MOUTH ONCE DAILY fenofibrate nanocrystallized 145 mg tablet 145 mg PO DAILY Label Comments: TAKE 1 TABLET BY MOUTH ONCE DAILY lisinopril 5 mg tablet 5 mg PO DAILY metformin 500 mg tablet extended release 24 hr 2,000 mg PO DAILY Referrals / Follow Up: Zhao Hough MD [Med Staff - Consulting] - Within 2 Weeks (For MAURISIO, hypertension) Manjit Geronimo DO [Med Staff - Active Staff] - (Follow-up with Dr. Geronimo at 8:40 AM on 01/16/2022) Harmeet Calderon MD [Primary Care Provider] - Within 2 Weeks Disposition Disposition (needs filled in before D/C Order can be placed): Home, Self Care Charges/Coding Visit Charges Inpatient E&M: 69260 Disch Hosp
[2022-01-13 12:51] LABS: Bedside Glucose 108 mg/dL (74-106)
--- NOTE | 2022-01-13 13:51 | CASEMGMT ---
Social Work SW in to provide support from discharge plans. Met with pt and inquired if pt had any needs. Pt recently diagnosed with renal cancer. Pt Aunt in room with pt providing support. Pt declined any SW assistance at this time. SW encouraged pt to ask if any needs arise before discharge. MADYSON Pena
[2022-01-13 13:55] VITALS: BP 159/96; PULSE 97; RESP 18; TEMP 37.1; O2SAT 98
[2022-01-13 16:09] LABS: Cytoplasmic Ab (C-ANCA) <1:20 titer (Neg:<1:20)
[2022-01-14 08:24] LABS: ANTINUCLEAR ANTIBODIES DIRECT Negative (Negative)
[2022-01-14 08:25] LABS: Complement C3 189 mg/dL (82-167); Perinuclear Ab (P-ANCA) <1:20 titer (Neg:<1:20)
== END 2022-01-13 14:10 | disposition home or self-care (01) | DRG 461 ==
LOC: ED 17:32 → MS3 18:10
PROVIDERS: Family Medicine; Internal Medicine; Internal Medicine Nephrology; Nurse Practitioner Adult Health; Admitting Provider Internal Medicine; Emergency Provider Emergency Medicine; PCP Internal Medicine; Visit Provider Internal Medicine
DX: C64.2 Malignant neoplasm of left kidney, except renal pelvis (principal); I82.220 Acute embolism and thrombosis of inferior vena cava; N17.9 Acute kidney failure, unspecified; I82.3 Embolism and thrombosis of renal vein; C77.2 Secondary and unspecified malignant neoplasm of intra-abdominal lymph nodes; E11.9 Type 2 diabetes mellitus without complications; Z79.4 Long term (current) use of insulin; I10 Essential (primary) hypertension; E78.5 Hyperlipidemia, unspecified; F41.9 Anxiety disorder, unspecified; F32.A Depression, unspecified; F84.5 Asperger's syndrome; Z79.1 Long term (current) use of non-steroidal anti-inflammatories (NSAID); Z79.899 Other long term (current) drug therapy
CPT/HCPCS: 36415; 74176; 74185; 76770; 80048; 80053; 80069; 81001; 82570; 82962; 83615; 84156; 85025; 86038; 86160; 86225; 86235; 86256; 93975; 99284; A9575; J7030; J7120; A4216; C8902

== ENCOUNTER → 2022-04-16 | Outpatient (CLI) | payer MEDICAID, SELFPAY ==
[2022-04-16] MEDS: 0.9% NaCl Peripheral Flush Adult/Peds IV (10:50)
[2022-04-16 10:55] VITALS: BP 126/81; PULSE 116; RESP 16; TEMP 36.4; O2SAT 100
[2022-04-16 11:19] VITALS: BP 122/82; PULSE 107; RESP 16; TEMP 36.6; O2SAT 99
[2022-04-16 12:19] VITALS: BP 118/84; PULSE 115; RESP 14; TEMP 36.9; O2SAT 100
[2022-04-16 13:08] VITALS: BP 115/80; PULSE 116; RESP 16; TEMP 36.6; O2SAT 100
== END | disposition home or self-care (01) ==
LOC: MEDOUTP 10:21
PROVIDERS: PCP Internal Medicine; Referring Provider Internal Medicine Hematology & Oncology; Visit Provider Internal Medicine Hematology & Oncology
DX: D50.9 Iron deficiency anemia, unspecified (principal)
CPT/HCPCS: 36430; 86850; 86900; 86901; 86920; 86922; J7040; P9016; A4216

== ENCOUNTER → 2022-05-11 | Outpatient (CLI) | payer MEDICAID, SELFPAY ==
[2022-05-11 08:53] VITALS: BP 112/80; PULSE 120; RESP 16; TEMP 36.2; O2SAT 98; BMI 31.1
[2022-05-11] MEDS: 0.9% NaCl Peripheral Flush Adult/Peds IV ×2 (08:53→14:26)
[2022-05-11 09:18] VITALS: BP 105/72; PULSE 115; RESP 18; TEMP 35.6; O2SAT 96
[2022-05-11 10:30] VITALS: BP 130/75; PULSE 109; TEMP 36.6; O2SAT 95
[2022-05-11 11:18] VITALS: BP 119/82; PULSE 104; RESP 16; TEMP 35.5; O2SAT 95
[2022-05-11 12:31] VITALS: BP 116/83; PULSE 99; RESP 16; TEMP 35.7; O2SAT 97
[2022-05-11 13:39] VITALS: BP 118/77; PULSE 100; TEMP 36.3; O2SAT 97
== END | disposition home or self-care (01) ==
PROVIDERS: PCP Internal Medicine; Referring Provider Internal Medicine Hematology & Oncology; Visit Provider Internal Medicine Hematology & Oncology
DX: D50.9 Iron deficiency anemia, unspecified (principal)
CPT/HCPCS: 36430; 86850; 86870; 86880; 86900; 86901; 86902; 86905; J7040; J7050; P9016; A4216

== ENCOUNTER 2022-06-19 14:16 | Emergency (ER) | payer MEDICAID, SELFPAY ==
[2022-06-19 14:16] VITALS: BP 104/78; PULSE 104; RESP 18; TEMP 36.1; O2SAT 97; BMI 30.2
[2022-06-19 14:28] VITALS: BP 104/78; PULSE 104; RESP 18; TEMP 36.1; O2SAT 97
--- NOTE | 2022-06-19 15:18 | EDS_ITS ---
HPI History of Present Illness Chief Complaint: Rash Informant: patient Onset/Context/Timing Onset: Weeks (1) Context: Gradual Onset Timing: Continuous Quality: Redness, burning Location: Right medial thigh Worsened by: Movement Relieved by: Nothing Narrative Narrative: Presents with a rash to his right medial thigh that has been getting worse over the past week. Patient describes it as a burning sensation. Patient states the area is reddened and painful. Patient states it is worse with movement. Patient denies any fevers or chills. Patient denies any discharge or drainage. Patient was started on Keflex recently for this. Patient denies any nausea or vomiting. Patient denies any urinary complaints. [facility] Medical History Acute renal failure Anxiety Asperger's disorder Depression Diabetes mellitus, type II Hematuria HLD (hyperlipidemia) HTN (hypertension) Renal vein occlusion Home Medications venlafaxine 150 mg capsule,extended release 24 hr 150 mg PO DAILY depression 08/31/18 [History Last Taken 01/08/22] bupropion HCl 300 mg 24 hr tablet, extended release 300 mg PO DAILY 11/10/20 [History Last Taken 01/08/22] acetaminophen 500 mg tablet 1,000 mg PO Q6H PRN Pain 01/08/22 [History Last Taken 01/08/22] brexpiprazole 3 mg tablet (Rexulti) 3 mg PO DAILY 01/08/22 [History Last Taken 01/08/22] dulaglutide 1.5 mg/0.5 mL subcutaneous pen injector (Trulicity) 1.5 mg subcut TU 01/08/22 [History Last Taken 01/06/22] insulin lispro 100 unit/mL subcutaneous pen (Humalog KwikPen (U-100) Insulin) See Protocol subcut ACHS #15 mL 01/13/22 [Rx Last Taken Unknown] Allergy/AdvReac Type Severity Reaction Status Date / Time amoxicillin Allergy Hives Verified 05/11/22 08:55 atorvastatin AdvReac Unknown Vomiting Verified 05/11/22 08:55 Surgical History no surgical history no surgical history Social History Smoking Status: Never smoker ROS ROS ED Constitutional Constitutional ED: Denies chills or fever(s) Eyes Eyes: Denies blurry vision or change in vision ENT ENT ED: Denies rhinorrhea or sore throat Cardiovascular Cardiovascular: Denies chest pain or palpitations Respiratory/Chest Respiratory/Chest: Denies cough or dyspnea Gastrointestinal Gastrointestinal: Denies nausea or vomiting Genitourinary Genitourinary ED: Denies dysuria or hematuria Musculoskeletal Musculoskeletal: Denies back pain or neck pain Integumentary Reports rash; Denies abscess Neurologic Neurologic: Denies headache(s) or weakness Allergic/Immunologic Allergic/Immunologic ED: Denies mouth swelling or urticaria EXAM Physical Exam Const Vital Signs: 06/19/22 14:16 06/19/22 14:28 Temperature 97.0 F L 97 F L Temperature Source Temporal Temporal Pulse Rate 104 H 104 H Respiratory Rate 18 18 Blood Pressure 104/78 104/78 Blood Pressure Mean 86 86 Pulse Ox 97 97 Oxygen Delivery Method Room Air Room Air Positive well nourished and well developed General Appearance ED: well developed and NAD HEENT Reports moist mucous membranes Neck supple and no JVD Resp normal respiratory effort and clear to auscultation bilaterally Cardio regular rate, regular rhythm and no murmurs GI normal to inspection, nondistended, normoactive bowel sounds and non-tender Palpation: soft Extremity normal to inspection General Extremety ED: Negative for edema or tenderness General Extremity: Negative for edema Neuro oriented x3, CN's II-XII intact bilaterally and no sensory deficits noted Sensorium / Orientation: alert Motor Exam: strength 5/5 throughout Psych mental status grossly normal Skin Skin Narrative: There is erythema, tenderness, and ulceration over the medial aspect of the right medial thigh. There is no discharge or drainage. There is some involvem ent of the scrotum. There is no erythematous streaking. There are no petechia noted. Nikolsky sign was negative. MDM MDM MDM Narrative Medical decision making narrative: Differential diagnosis cellulitis, Liliana's gangrene, sepsis, and skin ulcerations secondary to chemotherapy. CBC will be obtained to assess for leukocytosis and anemia. Basic metabolic profile will be obtained to assess for electrolyte abnormality and renal function. Urinalysis will be obtained to assess for urinary tract infection. Blood cultures will be obtained to assess for bacteremia and sepsis. Lactate will be obtained to assess for sepsis. CT scan of the abdomen pelvis will be obtained to assess for Liliana's gangrene. Lab Data Attestation: I reviewed the patient's lab results. Lab results narrative: CBC was reviewed. Hemoglobin was stable at 11.0 hematocrit was 36.7. White blood cell count was slightly low at 4.2. Absolute neutrophil count was normal at 3.1. PT with INR and PTT were reviewed. Pro time was 15.9 and INR is 1.3. PTT was slightly elevated at 36.3. Basic metabolic profile was reviewed. BUN was 20 and creatinine was 1.54. These were improved compared to previous results. Lactate was normal at 1.3. Urinalysis was reviewed and does not show any evidence of urinary tract infection or hematuria. Labs: Laboratory Results - last 24 hr 06/19/22 06/19/22 06/19/22 15:40 15:40 15:40 WBC 4.2 L RBC 4.77 Hgb 11.0 L Hct 36.7 L MCV 76.9 L MCH 23.1 L MCHC 30.0 L RDW Std Deviation 54.5 H RDW Coeff of Jennie 20.3 H Plt Count 295 MPV 9.6 Immature Gran % (Auto) 0.200 Neut % (Auto) 74.2 H Lymph % (Auto) 15.4 L [place] % (Auto) 8.8 Eos % (Auto) 0.7 Baso % (Auto) 0.7 Absolute Neuts (auto) 3.1 Absolute Lymphs (auto) 0.65 L Nucleated RBC % 0 Differential Comment SCANNED PT 15.9 H INR 1.3 APTT 36.3 H Sodium 135 L Potassium 3.7 Chloride 98 Carbon Dioxide 31.0 Anion Gap 6 BUN 20 H Creatinine 1.54 H Estim Creat Clear Calc 69.99 Est GFR (MDRD) Af Amer 64 Est GFR (MDRD) Non-Af 53 L BUN/Creatinine Ratio 13.0 Glucose 170 H Lactic Acid Calcium 9.1 Urine Color Urine Clarity Urine pH Ur Specific [place] Urine Protein Urine Glucose (UA) Urine Ketones Urine Occult Blood Urine Nitrite Urine Bilirubin Urine Urobilinogen Ur Leukocyte Esterase Urine RBC Urine WBC Ur Squamous Epith Cells Urine Bacteria Hyaline Casts Urine Mucus 06/19/22 06/19/22 15:40 15:44 WBC RBC Hgb Hct MCV MCH MCHC RDW Std Deviation RDW Coeff of Jennie Plt Count MPV Immature Gran % (Auto) Neut % (Auto) Lymph % (Auto) [place] % (Auto) Eos % (Auto) Baso % (Auto) Absolute Neuts (auto) Absolute Lymphs (auto) Nucleated RBC % Differential Comment PT INR APTT Sodium Potassium Chloride Carbon Dioxide Anion Gap BUN Creatinine Estim Creat Clear Calc Est GFR (MDRD) Af Amer Est GFR (MDRD) Non-Af BUN/Creatinine Ratio Glucose Lactic Acid 1.3 Calcium Urine Color Yellow Urine Clarity Clear Urine pH 6.0 Ur Specific [place] 1.015 Urine Protein 30 H Urine Glucose (UA) 100 H Urine Ketones Negative Urine Occult Blood 10 H Urine Nitrite Negative Urine Bilirubin Negative Urine Urobilinogen 4 H Ur Leukocyte Esterase 25 H Urine RBC 0-5 SEEN Urine WBC 0-5 SEEN Ur Squamous Epith Cells 0 SEEN Urine Bacteria 0 SEEN Hyaline Casts 0-5 SEEN Urine Mucus 0 SEEN Radiography Diagnostic Testing: Clinical Impression(s) from Imaging Studies Pelvis CT 06/19/22 15:27 IMPRESSION: Mild skin thickening of the medial upper thigh without evidence of Liliana''s gangrene. Findings suspicious for cystitis. Correlate with urinalysis. Partially imaged mass in the left lower renal pole consistent with known renal cell carcinoma. Electronically Signed: Micheal Howard MD at 18:10 EST , CT scan of the pelvis with IV contrast was obtained. There is mild skin thickening of the medial upper thigh there is no evidence of Liliana's gangrene. There is a mass in the left lower renal pole consistent with renal cell carcinoma. This was interpreted by the radiologist and was also independently reviewed by myself. Treatment and Re-Evaluation Narrative: Patient was given IV fluids. Patient is feeling better on reevaluation. Case was discussed with Dr. Geronimo from oncology. Patient was instructed to continue his Keflex as previously prescribed. Patient was instructed to follow-up with his primary care physician and oncologist in 3 to 5 days. Patient understood and was agreeable with the plan. All questions were answered. Discharge Plan Triage Chief Complaint: Rash ED Provider: Kermit Killian Dx/Rx/DC Orders Clinical Impression: Cellulitis of right thigh, Renal cell carcinoma Instructions: ED Cellulitis Prescriptions: No Action venlafaxine 150 MG capsule 150 mg PO DAILY bupropion HCl 300 mg tablet extended release 24 hr 300 mg PO DAILY Label Comments: TAKE 1 TABLET BY MOUTH ONCE DAILY acetaminophen 500 mg Tablet 1,000 mg PO Q6H PRN (Reason: Pain) Trulicity 1.5 mg/0.5 mL pen injector 1.5 mg SUBCUT TU Rexulti 3 mg tablet 3 mg PO DAILY Label Comments: TAKE 1 TABLET BY MOUTH ONCE DAILY insulin lispro [Humalog KwikPen Insulin] 100 unit/mL Insulin Pen See Protocol subcut ACHS Qty: 15 0RF Protocol: 3. Sliding Scale Insulin Med Dosing Condition: 150-189 mg/dl = 1 unit Condition: 190-229 mg/dl = 2 units Condition: 230-269 mg/dl = 3 units Condition: 270-309 mg/dl = 4 units Condition: 310-349 mg/dl = 5 units Condition: 350-399 mg/dl = 6 units Condition: 400-449 mg/dl = 7 units Condition: Greater than 449 call physician Protocol Text: - Use for Total Daily Dose of Insulin 37-55 units - Obsese, infected, or steroid patients MEDIUM DOSING ALGORITHIM Primary Care Provider: Harmeet Calderon Referrals: Manjit Geronimo DO [Med Staff - Active Staff] - 3-5 Days Harmeet Calderon MD [Primary Care Provider] - 3-5 Days Activity Restrictions/Additional Instructions: Continue the Keflex as prescribed by Dr. Geronimo. Follow-up with him in 3 to 5 days for recheck. Return to the emergency department if worse in any way. Disposition Disposition: Home, Self Care
--- NOTE | 2022-06-19 15:27 | CT_ITS ---
INDICATION: Cellulitis right inner thigh -- Possible Liliana''s gangrene. 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 A radiation dose optimization technique was used for this scan. IV Contrast dosage and agent: IV 100mL Isovue-370 Oral contrast: None. COMPARISON: None. FINDINGS: Kidneys: Partially imaged mass in the left lower renal pole consistent with known renal cell carcinoma. Vasculature: Mild scattered aortoiliac atherosclerotic calcifications. GI Tract: Unremarkable Lymphadenopathy: None Peritoneum: No ascites. Bladder: Mild circumferential wall thickening with subtle surrounding inflammatory changes. Reproductive organs: Unremarkable Bones/Soft tissues: No suspicious osseous or soft tissue lesions. Mild skin thickening of the medial upper thigh. No focal fluid collection, subcutaneous emphysema or fascial enhancement. CT/Pelvis WITH IV Contrast IMPRESSION: Mild skin thickening of the medial upper thigh without evidence of Liliana''s gangrene. Findings suspicious for cystitis. Correlate with urinalysis. Partially imaged mass in the left lower renal pole consistent with known renal cell carcinoma. Electronically Signed: Micheal Howard MD at 18:10 EST ,
[2022-06-19 15:50] LABS: Bacteria 0 SEEN /hpf (None Seen); Mucous, Urine 0 SEEN /hpf (<or=2+)
[2022-06-19] MEDS: 0.9% Normal Saline 1,000 ML 1000 ML IV (15:56)
[2022-06-19 16:05] LABS: Absolute Lymphocyte Count 0.65 X10^3/uL (0.83-4.51); Absolute Neutrophil Count 3.1 X10^3/uL (2.0-7.7); Basophil# 0.03 X10^3/uL; Basophil% 0.7 % (0-1); Eosinophil# 0.03 X10^3/uL; Eosinophils% 0.7 % (0-5); Hematocrit 36.7 % (40-54); Lymphocyte # 0.65 X10^3/ul (0.83-4.51); Lymphocyte % 15.4 % (19-41); Mean Corpuscular Hgb 23.1 pg (27.0-32.0); Mean Corpuscular Volume 76.9 fL (80-94); Mean Platelet Vol. 9.6 fl (6.2-12.0); Monocyte# 0.37 X10^3/uL; Monocyte% 8.8 % (0-10); NRBC Flagged by Analyzer 0 % (0-5); Neutrophil # 3.13 X10^3/uL (2.7-7.7); Neutrophil % 74.2 % (47-70); POSITIVE MORPHOLOGY YES; Platelet Count 295 K/mm3 (150-450); RBC Distribution Width CV 20.3 % (11.6-14.6); RBC Distribution Width SD 54.5 fl (35.1-43.9); Red Blood Count 4.77 M/mm3 (4.6-6.2); White Blood Count 4.2 K/mm3 (4.4-11.0)
[2022-06-19 16:15] LABS: Differential Indicated SCAN CRITERIA MET
[2022-06-19 16:17] LABS: Anion Gap 6 (5-15); BUN 20 mg/dL (7-18); Calcium,Total 9.1 mg/dL (8.5-10.1); Chloride 98 mmol/L (98-107); Creatinine, Serum 1.54 mg/dL (0.70-1.30); EST Glomerular Filtration Rate 53 mL/min (>60); Est Glom Filt Rate - Afr Amer 64 mL/min (>60); Estimated Creatinine Clearance 69.99 ml/min; Glucose 170 mg/dL (74-106); Potassium 3.7 mmol/L (3.5-5.1); Sodium Level 135 mmol/L (136-145)
[2022-06-19 16:25] LABS: Color, Urine Yellow (Yellow); Glucose, Dipstick 100 mg/dl (Normal); Ketone-Dipstick Negative (Negative); Leukocyte Esterase-Dipstick 25 /ul (Negative); Nitrite-Dipstick Negative (Negative); Occult Blood-Urine 10 /ul (Negative); Protein-Dipstick 30 mg/dl (Negative); Specific Gravity, Urine 1.015 (1.002-1.030); Urine Bilirubin Dipstick Negative (Negative); Urine Clarity Clear (Clear); Urine Urobilinogen 4 mg/dl (Normal)
[2022-06-19 16:29] LABS: International Normalized Ratio 1.3; Partial Thromboplast Time 36.3 Seconds (24.1-36.2); Prothrombin Time (Protime)PT. 15.9 SECONDS (11.7-14.9)
[2022-06-19 16:34] LABS: Lactic Acid 1.3 mmol/L (0.4-1.9)
[2022-06-19 16:47] LABS: Differential Comment SCANNED
[2022-06-19 18:15] LABS: Hyaline Cast 0-5 SEEN /lpf (0-5); Red Blood Cells-Urine 0-5 SEEN /hpf (0-5); Squamous Epithelial Cells - UA 0 SEEN /hpf (0-5); White Blood Cells 0-5 SEEN /hpf (0-5)
== END 2022-06-19 19:49 | disposition home or self-care (01) ==
PROVIDERS: Emergency Provider Emergency Medicine; PCP Internal Medicine; Visit Provider Emergency Medicine
DX: L03.115 Cellulitis of right lower limb (principal); C64.9 Malignant neoplasm of unspecified kidney, except renal pelvis; M79.651 Pain in right thigh
CPT/HCPCS: 72193; 80048; 81001; 83605; 85025; 85610; 85730; 87040; 96360; 96361; 99283; J7030; Q9967; A4216

== ENCOUNTER → 2022-08-06 | Outpatient (CLI) | payer MEDICAID, SELFPAY ==
[2022-08-06 14:33] LABS: ALB/GLOB Ratio 0.3 RATIO (0.9-2.4); AST(SGOT) 42 U/L (15-37); Alanine Aminotransfer ALT/SGPT 24 U/L (16-61); Albumin, Serum 1.8 g/dL (3.2-5.0); Alkaline Phosphatase 220 U/L (45-117); Anion Gap 8 (5-15); BUN 18 mg/dL (7-18); BUN/Creat Ratio 13.4 RATIO (10-20); Calcium,Total 9.2 mg/dL (8.5-10.1); Chloride 95 mmol/L (98-107); Creatinine, Serum 1.34 mg/dL (0.70-1.30); EST Glomerular Filtration Rate 62 mL/min (>60); Est Glom Filt Rate - Afr Amer 76 mL/min (>60); Globulin 6.2 g/dL (2.2-4.2); Glucose 151 mg/dL (74-106); LDH 270 U/L (87-241); Potassium 3.9 mmol/L (3.5-5.1); Sodium Level 130 mmol/L (136-145)
== END | disposition home or self-care (01) ==
LOC: LABSPEC 13:58
PROVIDERS: PCP Internal Medicine; Referring Provider Internal Medicine Hematology & Oncology; Visit Provider Internal Medicine Hematology & Oncology
DX: C64.2 Malignant neoplasm of left kidney, except renal pelvis (principal); C79.51 Secondary malignant neoplasm of bone; R53.83 Other fatigue; R53.81 Other malaise
CPT/HCPCS: 80053; 83615

== ENCOUNTER 2022-08-14 11:59 | Emergency (ER) | payer MEDICAID, SELFPAY ==
[2022-08-14 12:01] VITALS: BP 113/83; PULSE 104; RESP 18; TEMP 36.6; O2SAT 96; BMI 28.3
--- NOTE | 2022-08-14 12:08 | CT_ITS ---
STUDY: CTA CHEST REASON FOR EXAM: Male, 42 years old. cp with Aortic thrombosis RADIATION DOSAGE (If Supplied By Facility): CTDIvol = ( 11.45 ) mGy, DLP = ( 445.28 ) mGycm TECHNIQUE: The examination was performed with the intravenous administration of IV 100mL Isovue-370. Post-processing of the angiographic images was performed, with multiplanar reformation and 3D reconstruction. Individualized dose optimization techniques were used for this CT. COMPARISON: Comparison is made with prior study dated August 31, 2018. FINDINGS: Multiple bilateral intraluminal filling defects in the pulmonary arteries in keeping with diffuse bilateral pulmonary embolism. Normal thoracic aorta and visualized great vessels. There is no demonstrated aortic dissection. Tiny pericardial effusion. Normal mediastinum. Normal hilar regions. Normal visualized trachea and bronchi. The lungs are well expanded. Multiple bilateral pulmonary nodules are seen involving both lungs. There is also evidence of diffuse increased interstitial markings in both lungs. Small bilateral pleural effusions with bibasilar atelectasis. There is a 4.5 cm x 4.6 cm x 4 cm soft tissue mass in the posterior medial aspect of the left upper lobe with underlying destruction of the rib and the left side of the transverse process of the adjacent thoracic vertebrae. There are degenerative changes of thoracic spine. Heterogeneous appearance of the thoracic vertebrae. Questionable 3.3 cm x 3.4 cm right adrenal mass. CT/CTA Chest W/WO Contrast IMPRESSION: Multiple bilateral pulmonary emboli. Multiple bilateral pulmonary nodules with increased interstitial markings. Small bilateral pleural effusions left greater than right with bibasilar atelectasis. 4.5 cm x 4.6 cm x 4 cm soft tissue mass in the posterior medial aspect of the left upper lobe with underlying vertebral and rib destruction. Possible enlarged right adrenal gland. Electronically Signed: Louie Valladares MD at 13:43 EDT ,
--- NOTE | 2022-08-14 12:15 | EKG12_ITS ---
Test Reason : Blood Pressure : / mmHG Vent. Rate : 096 BPM Atrial Rate : 096 BPM P-R Int : 166 ms QRS Dur : 074 ms QT Int : 344 ms P-R-T Axes : 062 008 015 degrees QTc Int : 434 ms Normal sinus rhythm Cannot rule out Anterior infarct , age undetermined Abnormal ECG Confirmed by MARIE BURKS, NICOLE ([id number]), general expeditor EPHRAIM VIVEROS ([id number]) on 08/17/2022 11:00:57 AM Referred By: Raul Lema Confirmed By:NICOLE SALAZAR MD
[2022-08-14 12:20] LABS: Absolute Lymphocyte Count 0.57 X10^3/uL (0.83-4.51); Absolute Neutrophil Count 3.1 X10^3/uL (2.0-7.7); Basophil# 0.04 X10^3/uL; Eosinophil# 0.02 X10^3/uL; Eosinophils% 0.5 % (0-5); Hematocrit 29.8 % (40-54); Hemoglobin 8.8 g/dL (13.0-16.5); Lymphocyte # 0.57 X10^3/ul (0.83-4.51); Lymphocyte % 14.1 % (19-41); Mean Corp Hgb Conc 29.5 g/dL (32-36); Mean Corpuscular Hgb 24.2 pg (27.0-32.0); Mean Corpuscular Volume 82.1 fL (80-94); Monocyte# 0.29 X10^3/uL; Monocyte% 7.2 % (0-10); NRBC Flagged by Analyzer 0 % (0-5); Neutrophil # 3.09 X10^3/uL (2.7-7.7); Neutrophil % 76.5 % (47-70); POSITIVE DIFFERENTIAL YES; POSITIVE MORPHOLOGY YES; Platelet Count 349 K/mm3 (150-450); RBC Distribution Width CV 24.5 % (11.6-14.6); RBC Distribution Width SD 72.8 fl (35.1-43.9); Red Blood Count 3.63 M/mm3 (4.6-6.2)
--- NOTE | 2022-08-14 12:24 | ED.VIS.CHEST ---
HPI History of Present Illness Chief Complaint: Palpitations Detail of Chief Complaint: Left-sided chest pain today around 8:30 AM. After waking up. Nonpleuritic Informant: patient and parent Onset/Context/Timing Onset: Today and Hours Activity at onset: gradual Timing: Intermittent Quality: Positive for Dull Location: Left Chest Current Severity: Gone Maximum Severity: Mild Relieved By: Nothing Associated Symptoms: Negative for Nausea, Vomiting or Diaphoresis Narrative Narrative: 42-year-old male history of diabetes, hypertension and renal CA with lung and liver mets. Currently his get immuno and chemotherapy under the care of Dr. Manjit Geronimo at the [facility]. Patient states on 8 AM this morning to awakening. Prior Similar Symptoms: No Recent Illness/Hospitalization: No CVD Risk Factors: Positive for Hypertension and Diabetes PE Risk Factors: Positive for Prior DVT or PE; Negative for Recent Travel/Surgery, Recent Immobilization, Cancer or OCP + Smoking + >/=35 TAD Risk Factors: Negative for Marfan's Syndrome PFSH PFS Medical History Acute renal failure Anxiety Asperger's disorder Depression Diabetes mellitus, type II Hematuria HLD (hyperlipidemia) HTN (hypertension) Renal vein occlusion Home Medications venlafaxine 150 mg capsule,extended release 24 hr 150 mg PO DAILY depression 08/31/18 [History Last Taken 01/08/22] bupropion HCl 300 mg 24 hr tablet, extended release 300 mg PO DAILY 11/10/20 [History Last Taken 01/08/22] apixaban 5 mg (74 tabs) tablets in a dose pack (Eliquis DVT-PE Treat 30D Start) 5 mg PO BID 30 days #60 tabs 08/14/22 [Rx Last Taken Unknown] cabozantinib 40 mg tablet 40 mg PO DAILY 08/14/22 [History Last Taken Unknown] clobetasol 0.05 % topical foam 1 applic topical BID 08/14/22 [History Last Taken Unknown] morphine 15 mg tablet,extended release (MS Contin) 15 mg PO Q12H Check with primary doctor 08/14/22 [History Last Taken Unknown] omeprazole 40 mg capsule,delayed release 40 mg PO DAILY 08/14/22 [History Last Taken Unknown] ondansetron 8 mg disintegrating tablet 8 mg PO Q8H PRN Nausea 08/14/22 [History Last Taken Unknown] oxycodone-acetaminophen 5 mg-325 mg tablet 1 tab PO Q6H PRN Pain 08/14/22 [History Last Taken Unknown] promethazine 25 mg tablet 25 mg PO Q6H PRN Nausea 08/14/22 [History Last Taken Unknown] urea 40 % lotion 1 applic topical BID 08/14/22 [History Last Taken Unknown] Allergy/AdvReac Type Severity Reaction Status Date / Time amoxicillin Allergy Hives Verified 08/14/22 12:03 atorvastatin AdvReac Unknown Vomiting Verified 08/14/22 12:03 Social History Smoking Status: Never smoker ROS ROS ED ROS Narrative Denies recent illness. Constitutional Constitutional ED: Denies chills Eyes Eyes: Reports none ENT ENT ED: Denies ear pain Cardiovascular Cardiovascular: Reports as per HPI and chest pain Respiratory/Chest Respiratory/Chest: Denies cough Gastrointestinal Gastrointestinal: Denies abdominal pain Genitourinary Genitourinary ED: Denies dysuria or hematuria Musculoskeletal Musculoskeletal: Denies arthralgias Integumentary Denies abscess Neurologic Neurologic: Denies headache(s) or paresthesias Psychiatric Psychiatric: Denies anxiety or depression Endocrine Endocrinology: Denies cold intolerance Hematologic/Lymphatic Hematologic/Lymphatic: Denies easy bleeding Allergic/Immunologic Allergic/Immunologic ED: Denies mouth swelling EXAM Physical Exam Narrative Exam Narrative: 42-year-old male no acute distress. Vital signs stable afebrile. Pulse ox 96% on room air no signs hypoxia. Patient appears very pale. He is awake alert. Sitting upright in bed. Family is at bedside. H EENT exam unremarkable and pale. Moist with members. Neck nontender. No JVD. No lymphadenopathy. Lungs clear to auscultation bilaterally. Heart regular rhythm rate about 100 no murmur. Chest wall nontender. Abdomen soft nontender. Moving all 4 extremities. Calves are nontender without edema or cords. Neurologically is awake alert with no focal motor deficits. Const Vital Signs: 08/14/22 12:01 08/14/22 12:08 08/14/22 12:18 Temperature 97.8 F Temperature Source Temporal Pulse Rate 104 H Respiratory Rate 18 Respiratory Effort Normal Non-Labored Blood Pressure 113/83 H Blood Pressure Mean 93 Pulse Ox 96 Oxygen Delivery Method Room Air Room Air Positive well nourished and well developed; Negative for cachectic, contractures or unkempt General Appearance ED: well developed, NAD and pallor; Negative for unkempt, cachectic or contractures Nutritional Appearance: Negative for cachectic HEENT Reports moist mucous membranes; Denies dry mucous membranes normocephalic and atraumatic; Negative for trauma or tenderness Mouth ED: No dry mucous membranes Mouth: No dry mucous membranes Eyes PERRL and EOMs intact bilaterally General Eye ED: Yes pale conjunctiva; Negative for scleral icterus Neck no lymphadenopathy, supple and no JVD General: Negative for tenderness Chest Wall inspection of chest normal and palpation of chest normal Chest: Negative for tenderness Resp normal respiratory effort and clear to auscultation bilaterally Effort and Inspection: Negative for respiratory distress Auscultation: Negative for rales, rhonchi or wheezes Cardio regular rate, regular rhythm, S1 normal heart sound, S2 normal heart sound and no murmurs Rate: Negative for bradycardia Rhythm: Negative for abnormal rhythm Peripheral Pulses: pulses 2+ throughout GI normal to inspection, nondistended, normoactive bowel sounds, soft to palpation, non-tender and non-distended Auscultation: Negative for hyperactive bowel sounds Back/Spine no CVA tenderness and no thoracic nor lumbar tenderness General Back: Negative for CVA tenderness Cervical Spine: Negative for cervical spine tenderness Extremity normal to inspection General Extremety ED: Negative for edema or pulses abnormal General Extremity: Negative for edema or pulses abnormal Neuro oriented x3 and CN's II-XII intact bilaterally Sensorium / Orientation: awake, alert, oriented to person, oriented to place and oriented to time; Negative for confused or lethargic Motor Exam: strength 5/5 throughout Psych mental status grossly normal Appearance: Negative for unkempt Attitude: No agitated Mood & Affect: Negative for depressed, anxious or tearful Skin no rashes or lesions noted and no wounds General Skin Exam: pallor; Negative for jaundice Rashes: No rashes noted Trauma: Negative for abrasion or laceration MDM MDM MDM Narrative Medical decision making narrative: 42-year-old male left-sided chest discomfort. Reportedly no cardiac history. Does have a history reportedly of aortic clots so the oncologist was concerned for possible PE. Also consider cardiac etiology. Undergo cardiac work-up with a CTA of his chest. Patient does clinically appear anemic will be typed and screened also. Patient has bilateral pulmonary emboli. Discussed with his oncologist Dr. Manjit Geronimo. He is comfortable with patient being treated as an outpatient with [facility]. Discussed that with the patient and his mom is present in the room. They are comfortable with the plan. Outpatient follow-up with his oncologist next week. History & Record Review Discussion w/independent historian: Patient and Family Additional record(s) reviewed:: Prior inpatient record, Prior outpatient record, Prior ED visit and Prior labs Lab Data Attestation: I reviewed the patient's lab results. Lab results narrative: CBC shows a white count of 4. H&H 8.8 and 29.8 which is his baseline anemia. Platelet count 349. PT INR PTT are 16, 1 and 42 unremarkable. Electrolytes show sodium 129 he has a history of high natremia. Gap of 5. BUN and creatinine of 21.35 with good history of chronic renal insufficiency. Glucose 119. Initial troponin is elevated at 87. 2-hour troponin went down from 87-71. CT of his chest shows bilateral pulmonary emboli. Labs: Laboratory Results - last 24 hr 08/14/22 08/14/22 08/14/22 12:13 12:13 12:13 WBC 4.0 L RBC 3.63 L Hgb 8.8 L Hct 29.8 L MCV 82.1 MCH 24.2 L MCHC 29.5 L RDW Std Deviation 72.8 H RDW Coeff of Jennie 24.5 H Plt Count 349 MPV 10.0 Immature Gran % (Auto) 0.700 Neut % (Auto) 76.5 H Lymph % (Auto) 14.1 L Ward % (Auto) 7.2 Eos % (Auto) 0.5 Baso % (Auto) 1.0 Absolute Neuts (auto) 3.1 Absolute Lymphs (auto) 0.57 L Nucleated RBC % 0 Differential Comment SCANNED Diff Path Review May foll Anisocytosis 1+ PT 16.0 H INR 1.3 APTT 42.1 H Sodium 129 L Potassium 4.1 Chloride 96 L Carbon Dioxide 28.0 Anion Gap 5 BUN 20 H Creatinine 1.35 H Estim Creat Clear Calc 79.04 Est GFR (MDRD) Af Amer 75 Est GFR (MDRD) Non-Af 62 BUN/Creatinine Ratio 14.8 Glucose 119 H Calcium 8.9 Troponin I High Sens 87 H 08/14/22 14:30 WBC RBC Hgb Hct MCV MCH MCHC RDW Std Deviation RDW Coeff of Jennie Plt Count MPV Immature Gran % (Auto) Neut % (Auto) Lymph % (Auto) Ward % (Auto) Eos % (Auto) Baso % (Auto) Absolute Neuts (auto) Absolute Lymphs (auto) Nucleated RBC % Differential Comment Diff Path Review Anisocytosis PT INR APTT Sodium Potassium Chloride Carbon Dioxide Anion Gap BUN Creatinine Estim Creat Clear Calc Est GFR (MDRD) Af Amer Est GFR (MDRD) Non-Af BUN/Creatinine Ratio Glucose Calcium Troponin I High Sens 71 Radiography Diagnostic Testing: Clinical Impression(s) from Imaging Studies Chest CTA 08/14/22 12:08 IMPRESSION: Multiple bilateral pulmonary emboli. Multiple bilateral pulmonary nodules with increased interstitial markings. Small bilateral pleural effusions left greater than right with bibasilar atelectasis. 4.5 cm x 4.6 cm x 4 cm soft tissue mass in the posterior medial aspect of the left upper lobe with underlying vertebral and rib destruction. Possible enlarged right adrenal gland. Electronically Signed: Louie Valladares MD at 13:43 EDT , Rhythm Strip Rhythm Strip: Sinus Rhythm Rate: 96 Ectopy: None EKG Initial EKG: Attestation: I personally reviewed and interpreted this EKG as follows: Interpretation: Sinus Rhythm and No Acute Injury Pattern Comments: Sinus rhythm rate 96 no acute signs of MN or ischemia. No [id number]. Discharge Plan Triage Chief Complaint: Palpitations ED Provider: Raul Lema Dx/Rx/DC Orders Clinical Impression: Left-sided chest pain, Pulmonary embolism, bilateral, Kidney cancer, primary, with metastasis from kidney to other site, History of diabetes mellitus Instructions: Pulmonary Embolism Prescriptions: New Eliquis DVT-PE Treat 30D Start 5 mg (74 tabs) tablets,dose pack 5 mg PO BID 30 Days Qty: 60 0RF No Action venlafaxine 150 MG capsule 150 mg PO DAILY bupropion HCl 300 mg tablet extended release 24 hr 300 mg PO DAILY Label Comments: TAKE 1 TABLET BY MOUTH ONCE DAILY omeprazole 40 mg Capsule,Delayed Release(Dr/Ec) 40 mg PO DAILY ondansetron 8 mg Tablet,Disintegrating 8 mg PO Q8H PRN (Reason: Nausea) oxycodone-acetaminophen 5-325 mg tablet 1 tab PO Q6H PRN (Reason: Pain) promethazine 25 mg tablet 25 mg PO Q6H PRN (Reason: Nausea) Label Comments: TAKE 1 TABLET BY MOUTH EVERY 6 HOURS NEEDED FOR NAUSEA clobetasol 0.05 % Foam 1 applic TOPICAL BID morphine [MS Contin] 15 mg Tablet Extended Release 15 mg PO Q12H urea [CARMOL 40] 40 % Lotion 1 applic TOPICAL BID cabozantinib 40 mg Tablet 40 mg PO DAILY Primary Care Provider: Harmeet Calderon Referrals: Manjit Geronimo DO [Med Staff - Active Staff] - 1 Week Harmeet Calderon MD [Primary Care Provider] - Activity Restrictions/Additional Instructions: You have blood clots in your right and left lung both. You will be started on a medication called Eliquis which she will take twice a day. We wrote you a prescription for the first 30 days worth of the medication. I understand that you will be on it longer than that and your primary care physician or oncologist want to extend the prescription. The Eliquis is a blood thinner. If you start getting nosebleeds, or bloody stool or blood in your urine or you hit your head you need to be evaluated. Follow-up with your doctor either your oncologist Dr. Manjit Geronimo or your primary care physician next week. Disposition Disposition: Home, Self Care
[2022-08-14 12:25] LABS: Differential Indicated SCAN CRITERIA MET
[2022-08-14 12:33] LABS: International Normalized Ratio 1.3
[2022-08-14 12:34] LABS: Partial Thromboplast Time 42.1 Seconds (24.1-36.2)
[2022-08-14 12:35] LABS: Anisocytosis 1+; Differential Comment SCANNED
--- NOTE | 2022-08-14 12:37 | NURSING ---
OK TO HOLD OFF DRAWING A TYPE AND SCREEN AT THIS TIME DUE TO HGB OF 8.[address] BERMUDEZ.
[2022-08-14 12:38] LABS: Anion Gap 5 (5-15); BUN 20 mg/dL (7-18); BUN/Creat Ratio 14.8 RATIO (10-20); Calcium,Total 8.9 mg/dL (8.5-10.1); Chloride 96 mmol/L (98-107); Creatinine, Serum 1.35 mg/dL (0.70-1.30); EST Glomerular Filtration Rate 62 mL/min (>60); Est Glom Filt Rate - Afr Amer 75 mL/min (>60); Estimated Creatinine Clearance 79.04 ml/min; Glucose 119 mg/dL (74-106); Potassium 4.1 mmol/L (3.5-5.1); Sodium Level 129 mmol/L (136-145); Troponin-I HS (w/2H Reflex) 87 pg/mL (3.0-78.0)
[2022-08-14 13:00] VITALS: BP 114/80; PULSE 91; O2SAT 88
--- NOTE | 2022-08-14 13:06 | ED.RN ---
PTS O2 SATS DECREASE TO 89%. 2L O2 APPLIED VIA NC
[2022-08-14 14:00] VITALS: BP 110/87; PULSE 88; O2SAT 96
[2022-08-14 14:17] LABS: Reflex Troponin-HS? (from REC) Y
[2022-08-14 14:53] LABS: Troponin-I HS 71 pg/mL (3.0-78.0)
[2022-08-14 15:00] VITALS: BP 119/88
--- NOTE | 2022-08-14 15:36 | ED.RN ---
PT O2 SATS DECREASE TO 83% ON ROOM AIR. PT RECOVERS TO 91%. DR. BERMUDEZ MADE AWARE
[2022-08-14 15:57] VITALS: O2SAT 94
[2022-08-17 11:54] LABS: Pathologist Review Reviewed
== END 2022-08-14 16:03 | disposition home or self-care (01) ==
PROVIDERS: Emergency Provider Emergency Medicine; PCP Internal Medicine; Referring Provider Emergency Medicine; Visit Provider Emergency Medicine
DX: R07.9 Chest pain, unspecified (principal); C79.00 Secondary malignant neoplasm of unspecified kidney and renal pelvis; I26.99 Other pulmonary embolism without acute cor pulmonale; C64.9 Malignant neoplasm of unspecified kidney, except renal pelvis; F32.A Depression, unspecified; Z79.01 Long term (current) use of anticoagulants; Z79.899 Other long term (current) drug therapy
CPT/HCPCS: 71275; 80048; 84484; 85025; 85610; 85730; 93005; 99283; Q9967; A4216